=== PATIENT | female | born 1950 | race Hispanic/Latino ===

== ENCOUNTER 2017-05-09 19:55 | Emergency (ER) | payer SELFPAY ==
[2017-05-09] MEDS ORDERED: ACETAMINOPHEN-CODEINE ELIXIR 5 ML UDCUP ONE (20:29)
[2017-05-09 20:36] LABS: BASOPHILS % (AUTO) 0.9 % (0.0-5.0); EOSINOPHILS % (AUTO) 2.9 % (0.0-8.0); HEMATOCRIT 34.4 % (36-48); LYMPHOCYTES % (AUTO) 31.9 % (21.0-51.0); MEAN CORPUSCULAR HEMOGLOBIN 29.6 pg (27.0-33.0); MEAN CORPUSCULAR HGB CONC 35.4 g/dL (32.0-36.0); MEAN CORPUSCULAR VOLUME 83.5 fL (79-99); MONOCYTES % (AUTO) 5.5 % (3.0-13.0); NEUTROPHILS % (AUTO) 58.8 % (40.0-77.0); PLATELET COUNT (AUTO) 199 K/uL (130-400); RED BLOOD CELL COUNT(AUTO) 4.12 MIL/uL (4.00-5.50); RED CELL DISTRIBUTION WIDTH 13.7 % (11.0-15.5); WHITE BLOOD COUNT (AUTO) 7.5 K/uL (4.8-10.8)
[2017-05-09 20:50] LABS: CREATININE 0.7 mg/dL (0.5-1.5); POTASSIUM 4.2 mmol/L (3.5-5.1)
[2017-05-09 20:51] LABS: ALBUMIN 3.6 g/dL (3.5-5.0); BILIRUBIN,TOTAL 0.2 mg/dL (0.2-1.0); TOTAL PROTEIN, SERUM 7.3 g/dL (6.0-8.3)
[2017-05-09 21:07] LABS: APPEARANCE,URINE Clear (CLEAR); BILIRUBIN,URINE Negative (NEGATIVE); COLOR,URINE Yellow (YELLOW); GLUCOSE, URINE (UA) Negative (NEGATIVE); KETONES,URINE Negative (NEGATIVE); LEUKOCYTE ESTERASE ,URINE Moderate (NEGATIVE); NITRATE,URINE Positive (NEGATIVE); OCCULT BLOOD,URINE Negative (NEGATIVE); PROTEIN,URINE Negative (NEGATIVE); UROBILINOGEN,URINE 0.2 mg/dL (0.2-1.0)
[2017-05-09 21:19] LABS: BACTERIA,URINE Moderate /HPF (None Seen); RBC,URINE 0-1 /HPF (0-1); SQUAMOUS EPITHELIAL CELL,UR Rare /HPF (0-2)
[2017-05-09 21:20] LABS: CALCIUM OXALATE CRYSTALS,UR Rare /LPF (None Seen)
== END 2017-05-09 23:14 | disposition home or self-care (01) ==
LOC: EDH 19:55
DX: S39.012A Strain of muscle, fascia and tendon of lower back, initial encounter (principal); M54.31 Sciatica, right side; E11.40 Type 2 diabetes mellitus with diabetic neuropathy, unspecified; I10 Essential (primary) hypertension; E78.5 Hyperlipidemia, unspecified; Z98.890 Other specified postprocedural states
CPT/HCPCS: 36415; 72100; 72131; 80053; 81001; 85025

== ENCOUNTER 2018-02-02 07:34 | Emergency (ER) | payer OTHER ==
[2018-02-02] MEDS ORDERED: IPRATROPIUM/ALBUTEROL SULFATE 3 ML SOLUTION IH ONE (07:54)
[2018-02-02] MEDS ORDERED: ACETAMINOPHEN-CODEINE 300/30MG TAB ONE (08:01)
== END 2018-02-02 10:22 | disposition home or self-care (01) ==
LOC: EDH 07:34
DX: J06.9 Acute upper respiratory infection, unspecified (principal); E11.9 Type 2 diabetes mellitus without complications; E78.5 Hyperlipidemia, unspecified; I10 Essential (primary) hypertension; Z87.442 Personal history of urinary calculi
CPT/HCPCS: 71046; 94640

== ENCOUNTER 2018-12-19 05:12 | Emergency (ER) | payer OTHER ==
[2018-12-19] MEDS ORDERED: ACETAMINOPHEN 325 MG TAB ONE (05:37)
[2018-12-19 05:48] LABS: APPEARANCE,URINE Cloudy (CLEAR); BASOPHILS % (AUTO) 0.6 % (0.0-5.0); BILIRUBIN,URINE Negative (NEGATIVE); COLOR,URINE Yellow (YELLOW); EOSINOPHILS % (AUTO) 0.1 % (0.0-8.0); GLUCOSE, URINE (UA) Negative (NEGATIVE); HEMATOCRIT 34.6 % (36-48); KETONES,URINE Trace mg/dL (NEGATIVE); LEUKOCYTE ESTERASE ,URINE Large (NEGATIVE); LYMPHOCYTES % (AUTO) 10.8 % (21.0-51.0); MEAN CORPUSCULAR HEMOGLOBIN 28.8 pg (27.0-33.0); MEAN CORPUSCULAR HGB CONC 33.9 g/dL (32.0-36.0); MEAN CORPUSCULAR VOLUME 84.7 fL (79-99); MONOCYTES % (AUTO) 6.3 % (3.0-13.0); NEUTROPHILS % (AUTO) 82.2 % (40.0-77.0); NITRATE,URINE Positive (NEGATIVE); OCCULT BLOOD,URINE Trace (NEGATIVE); PH,URINE 7.5 (5.0-8.0); PLATELET COUNT (AUTO) 155 K/uL (130-400); PROTEIN,URINE Trace mg/dL (NEGATIVE); RED BLOOD CELL COUNT(AUTO) 4.09 MIL/uL (4.00-5.50); RED CELL DISTRIBUTION WIDTH 13.4 % (11.0-15.5); UROBILINOGEN,URINE 0.2 mg/dL (0.2-1.0); WHITE BLOOD COUNT (AUTO) 7.8 K/uL (4.8-10.8)
[2018-12-19 05:53] LABS: BACTERIA,URINE Moderate /HPF (None Seen); MUCUS,URINE Rare LPF (None Seen); SQUAMOUS EPITHELIAL CELL,UR Few /HPF (0-2)
[2018-12-19] MEDS ORDERED: PROCHLORPERAZINE EDISYLATE 10 MG/2 ML VIAL ONE (05:55)
[2018-12-19] MEDS ORDERED: DiphenhydrAMINE HCL 50 MG/ML VIAL ONE (05:55)
[2018-12-19] MEDS ORDERED: SODIUM CHLORIDE 0.9% 1000ML 1,000 ML IV ONE (05:55)
[2018-12-19 06:04] LABS: CARBON DIOXIDE 24 mmol/L (21-32); CHLORIDE 99 mmol/L (101-111); CREATININE 0.7 mg/dL (0.5-1.5); GLOMERULAR FILTR. RATE CALC 89 mL/min (>60); GLUCOSE,RANDOM 190 mg/dL (70-105); POTASSIUM 3.9 mmol/L (3.5-5.1); SODIUM SERUM 136 mmol/L (136-145); UREA NITROGEN, BLOOD 10 mg/dL (7-18)
[2018-12-19 06:06] LABS: INR 1.04 (0.85-1.15); PARTIAL THROMBOPLASTIN TIME 27.3 SEC (26.3-35.5); PROTHROMBIN TIME 10.9 SEC (9.6-11.6)
[2018-12-19] MEDS ORDERED: CEFTRIAXONE SODIUM 1 GM ONE (06:17)
[2018-12-19 06:33] LABS: ALANINE AMINOTRANSFERASE 15 U/L (12-78); ALBUMIN 3.5 g/dL (3.5-5.0); ASPARTATE AMINOTRANSFERASE 16 U/L (10-37); BILIRUBIN,TOTAL 0.4 mg/dL (0.2-1.0); CREATINE KINASE, TOTAL 72 U/L (21-232); MYOGLOBIN 35 ng/mL (10-92); TOTAL PROTEIN, SERUM 7.1 g/dL (6.0-8.3); TROPONIN I < 0.04 ng/mL (0.00-0.06)
[2018-12-19 06:40] LABS: LIPASE 121 U/L (114-286)
== END 2018-12-19 07:01 | disposition home or self-care (01) ==
LOC: EDH 05:12
DX: N39.0 Urinary tract infection, site not specified (principal); E11.9 Type 2 diabetes mellitus without complications; I10 Essential (primary) hypertension; E78.5 Hyperlipidemia, unspecified; Z87.442 Personal history of urinary calculi
CPT/HCPCS: 36415; 70450; 71045; 80053; 81001; 82550; 82948; 83605; 83690; 83874; 84145; 84484; 85025; 85610; 85730; 87040; 87077; 87088; 87186; 87804 ×2; 93005; 96374; 96375; 99285; J0696; J0780; J1200; J7030

== ENCOUNTER 2019-01-10 23:11 | Emergency (ER) | payer OTHER ==
[2019-01-11 00:06] LABS: EOSINOPHILS % (AUTO) 1.7 % (0.0-8.0); HEMATOCRIT 34.3 % (36-48); LYMPHOCYTES % (AUTO) 35.3 % (21.0-51.0); MEAN CORPUSCULAR HEMOGLOBIN 28.6 pg (27.0-33.0); MEAN CORPUSCULAR HGB CONC 33.3 g/dL (32.0-36.0); MEAN CORPUSCULAR VOLUME 85.8 fL (79-99); MONOCYTES % (AUTO) 7.1 % (3.0-13.0); NEUTROPHILS % (AUTO) 54.9 % (40.0-77.0); PLATELET COUNT (AUTO) 146 K/uL (130-400); RED CELL DISTRIBUTION WIDTH 13.7 % (11.0-15.5); WHITE BLOOD COUNT (AUTO) 5.6 K/uL (4.8-10.8)
[2019-01-11 00:11] LABS: INR 1.03 (0.85-1.15); PARTIAL THROMBOPLASTIN TIME 25.8 SEC (26.3-35.5); PROTHROMBIN TIME 10.8 SEC (9.6-11.6)
[2019-01-11 00:20] LABS: CREATININE 0.9 mg/dL (0.5-1.5)
[2019-01-11 00:24] LABS: ALBUMIN 3.7 g/dL (3.5-5.0); BILIRUBIN,TOTAL 0.2 mg/dL (0.2-1.0)
[2019-01-11] MEDS ORDERED: SODIUM CHLORIDE 0.9% 1000ML 1,000 ML IV ONE (01:02)
[2019-01-11 01:23] LABS: APPEARANCE,URINE Clear (CLEAR); BILIRUBIN,URINE Negative (NEGATIVE); COLOR,URINE Yellow (YELLOW); GLUCOSE, URINE (UA) 250 mg/dL (NEGATIVE); KETONES,URINE Negative (NEGATIVE); LEUKOCYTE ESTERASE ,URINE Large (NEGATIVE); NITRATE,URINE Negative (NEGATIVE); OCCULT BLOOD,URINE Negative (NEGATIVE); PH,URINE 5.5 (5.0-8.0); PROTEIN,URINE Negative (NEGATIVE); UROBILINOGEN,URINE 0.2 mg/dL (0.2-1.0)
[2019-01-11 01:36] LABS: BACTERIA,URINE None Seen /HPF (None Seen); RBC,URINE None Seen /HPF (0-1); SQUAMOUS EPITHELIAL CELL,UR Rare /HPF (0-2); YEAST,URINE BUDDING None Seen /HPF (None Seen)
[2019-01-11] MEDS ORDERED: CEFTRIAXONE SODIUM 1 GM ONE (02:11)
== END 2019-01-11 02:40 | disposition home or self-care (01) ==
LOC: EDH 23:11
DX: E86.9 Volume depletion, unspecified (principal); N39.0 Urinary tract infection, site not specified; R55 Syncope and collapse; I10 Essential (primary) hypertension; E11.9 Type 2 diabetes mellitus without complications; E78.5 Hyperlipidemia, unspecified; M19.90 Unspecified osteoarthritis, unspecified site; Z87.442 Personal history of urinary calculi
CPT/HCPCS: 36415; 80053; 81001; 82550; 84484; 85025; 85610; 85730; 87088; 93005; 96361; 96374; 99285; J0696; J7030

== ENCOUNTER 2019-07-10 20:27 | Observation (INO) | payer MEDICAID, OTHER ==
[~2019-07-10] VITALS: Ht 157.5 cm; Wt 74.2 kg
[2019-07-10 20:55] LABS: BASOPHILS % (AUTO) 0.5 % (0.0-5.0); EOSINOPHILS % (AUTO) 1.6 % (0.0-8.0); HEMATOCRIT 36.3 % (36-48); LYMPHOCYTES % (AUTO) 33.1 % (21.0-51.0); MEAN CORPUSCULAR HEMOGLOBIN 28.7 pg (27.0-33.0); MEAN CORPUSCULAR HGB CONC 33.9 g/dL (32.0-36.0); MEAN CORPUSCULAR VOLUME 84.8 fL (79-99); MONOCYTES % (AUTO) 6.1 % (3.0-13.0); NEUTROPHILS % (AUTO) 58.4 % (40.0-77.0); PLATELET COUNT (AUTO) 194 K/uL (130-400); RED BLOOD CELL COUNT(AUTO) 4.28 MIL/uL (4.00-5.50); RED CELL DISTRIBUTION WIDTH 12.8 % (11.0-15.5); WHITE BLOOD COUNT (AUTO) 7.7 K/uL (4.8-10.8)
[2019-07-10 21:01] LABS: CREATININE 0.9 mg/dL (0.5-1.5); POTASSIUM 4.1 mmol/L (3.5-5.1)
[2019-07-10 21:05] LABS: ALBUMIN 4.1 g/dL (3.5-5.0); BILIRUBIN,TOTAL 0.2 mg/dL (0.2-1.0); TOTAL PROTEIN, SERUM 7.7 g/dL (6.0-8.3)
[2019-07-10 21:08] LABS: INR 0.98 (0.85-1.15); PARTIAL THROMBOPLASTIN TIME 25.4 SEC (26.3-35.5); PROTHROMBIN TIME 10.6 SEC (9.6-11.6)
[2019-07-10 21:55] LABS: APPEARANCE,URINE Clear (CLEAR); BILIRUBIN,URINE Negative (NEGATIVE); COLOR,URINE Yellow (YELLOW); GLUCOSE, URINE (UA) 500 mg/dL (NEGATIVE); KETONES,URINE Negative (NEGATIVE); LEUKOCYTE ESTERASE ,URINE Small (NEGATIVE); NITRATE,URINE Negative (NEGATIVE); OCCULT BLOOD,URINE Negative (NEGATIVE); PH,URINE 5.5 (5.0-8.0); PROTEIN,URINE Negative (NEGATIVE); UROBILINOGEN,URINE 0.2 mg/dL (0.2-1.0)
[2019-07-10 22:00] LABS: RBC,URINE 0-1 /HPF (0-1); SQUAMOUS EPITHELIAL CELL,UR Rare /HPF (0-2)
[2019-07-10 22:01] LABS: BACTERIA,URINE Few /HPF (None Seen)
[2019-07-10 22:02] LABS: AMPHET/METH SCREEN,URINE NEGATIVE (NEGATIVE); BARBITURATE SCREEN, URINE NEGATIVE (NEGATIVE); BENZODIAZEPINES SCREEN,URINE NEGATIVE (NEGATIVE); CANNABINOID SCREEN,URINE NEGATIVE (NEGATIVE); COCAINE SCREEN,URINE NEGATIVE (NEGATIVE); OPIATE SCREEN,URINE NEGATIVE (NEGATIVE); PHENCYCLIDINE SCREEN,URINE NEGATIVE (NEGATIVE)
[2019-07-10] MEDS ORDERED: SODIUM CHLORIDE 0.9% 1000ML 1,000 ML IV ONE (22:18)
[2019-07-10] MEDS ORDERED: INSULIN HUMULIN R 100 UNIT/ML 3ML ONE (22:20)
[2019-07-11] MEDS ORDERED: LACTULOSE 20 GM/30 ML UDCUP PO PRN (00:30)
[2019-07-11] MEDS ORDERED: ACETAMINOPHEN 325 MG TAB PO PRN ×2 (00:30)
[2019-07-11] MEDS ORDERED: HYDRALAZINE HCL 20 MG/ML VIAL IV PRN (00:30)
[2019-07-11] MEDS ORDERED: ONDANSETRON HCL 4 MG/2 ML VIAL IV PRN (00:30)
[2019-07-11 00:59] LABS: CHOLESTEROL 160 mg/dL (<200); HDL CHOLESTEROL 119 mg/dL (35-85); TRIGLYCERIDES 401 mg/dL (30-200)
[2019-07-11] MEDS ORDERED: ATORVASTATIN CALCIUM 20 MG TABLET ONE (01:46)
[2019-07-11 01:48] LABS: HEMOGLOBIN A1C 9.1 % (4.0-6.0)
[2019-07-11 03:49] VITALS: BP 148/97
[2019-07-11] MEDS: INSULIN HUMULIN R 100 UNIT/ML 3ML SQ SCH ×2 (06:09→11:38)
[2019-07-11 08:00] VITALS: BP 122/77
[2019-07-11] MEDS ORDERED: FAMOTIDINE 20MG TAB 20 MG TAB PO SCH (09:00)
--- NOTE | 2019-07-11 10:15 | NUR ---
CHART CHECK COMPLETED Pt IS A 68 YEAR OLD FEMALE ADMITTED ON 07/10/19 SECONDARY TO FACE NUMBNESS, R/0 CVA VS TIA WITH PAST MEDICAL HISTORY OF DIABETES, HTN, AND HYPERLIPIDEMIA. NOTIFY SPEECH THERAPY FOR DYSPHAGIA EVALUATION IF S/S OF ASPIRATION ARISE. Addendum: 07/11/[address]AN HUERTAS Amended: Links added.
--- NOTE | 2019-07-11 10:26 | NUR ---
NEUROLOGY DR. BORJAS IN TO SEE PATIENT. NEW ORDERS RECEIVED AND CARRIED OUT.
[2019-07-11] MEDS ORDERED: ATOR20TA65 PO (10:48)
[2019-07-11] MEDS ORDERED: SITA25TA5 PO (10:48)
[2019-07-11] MEDS ORDERED: METF-444 PO (10:48)
[2019-07-11] MEDS ORDERED: METFORMIN HCL 500 MG TAB.SR.24H PO SCH (11:00)
[2019-07-11] MEDS ORDERED: LINAGLIPTIN 5 MG TABLET PO SCH (11:00)
[2019-07-11 11:14] VITALS: BP 127/74
--- NOTE | 2019-07-11 12:30 | NUR ---
INSTRUCTIONS DISCHARGE INSTRUCTIONS GIVEN TO PATIENT USING TEACH BACK. NO QUESTIONS OR CONCERNS VOICED. PMD WILL CALL PATIENT WITH F/U APPOINTMENT. NEW PRESCRIPTIONS ELECTRONICALLY SENT TO PATIENT'S PREFERRED PHARMACY. IV HAS BEEN REMOVED WITH TIP INTACT. DIRECT PRESSURE APPLIED UNTIL BLEEDING CONTROLLED THEN SITE COVERED WITH GAUZE AND SECURED WITH A BAND-AID. PENDING RIDE HOME.
--- NOTE | 2019-07-11 13:10 | NUR ---
PATIENT GONE BEFORE SEEN BY [facility] FOR DETAILED ASSESSMENT. NO CONCERNS VOICED BY PT RECORDER HELPER GRAVITY PROSPECTING, Addendum: 07/11/19 at 1311 by MAHSA ROGERS RN CM Amended: Links added.
[2019-07-11] MEDS ORDERED: ATORVASTATIN CALCIUM 20 MG TABLET PO SCH (21:00)
== END 2019-07-11 12:57 | disposition home or self-care (01) ==
LOC: EDH 20:27 → EDHIP 20:28 → 4AH 07-11 03:55
PROVIDERS: ADMIT Internal Medicine; ATTEND Internal Medicine
DX: I63.9 Cerebral infarction, unspecified (principal); I10 Essential (primary) hypertension; E11.65 Type 2 diabetes mellitus with hyperglycemia; E11.51 Type 2 diabetes mellitus with diabetic peripheral angiopathy without gangrene; E78.5 Hyperlipidemia, unspecified; Z91.14 Patient's other noncompliance with medication regimen
CPT/HCPCS: 36415; 70450; 70551; 71045; 80053; 80305; 81001; 82465; 82550; 82948 ×4; 83036; 83721; 84478; 84484; 85025; 85610; 85730; 87077; 87088; 87186; 93005; 93306; 93356; 93880; 96372; 97161; 99285; G0378 ×12; G8978; G8979; G8980; G8981; G8982; G8983; J1815 ×3; J7030

== ENCOUNTER 2020-07-11 06:02 | Emergency (ER) | payer MEDICAID, OTHER ==
[~2020-07-11 06:02] MED LIST: ATOR20TA65 PO; METF-444 PO; SITA25TA5 PO
[2020-07-11 06:27] LABS: BASOPHILS % (AUTO) 0.4 % (0.0-5.0); EOSINOPHILS % (AUTO) 0.6 % (0.0-8.0); HEMATOCRIT 34.1 % (36-48); MEAN CORPUSCULAR HEMOGLOBIN 27.9 pg (27.0-33.0); MEAN CORPUSCULAR HGB CONC 32.3 g/dL (32.0-36.0); MEAN CORPUSCULAR VOLUME 86.5 fL (79-99); MONOCYTES % (AUTO) 7.8 % (3.0-13.0); NEUTROPHILS % (AUTO) 50.8 % (40.0-77.0); PLATELET COUNT (AUTO) 208 K/uL (130-400); RED BLOOD CELL COUNT(AUTO) 3.94 MIL/uL (4.00-5.50); RED CELL DISTRIBUTION WIDTH 14.5 % (11.0-15.5); WHITE BLOOD COUNT (AUTO) 6.9 K/uL (4.8-10.8)
[2020-07-11 06:41] LABS: ALBUMIN 3.3 g/dL (3.5-5.0); BILIRUBIN,TOTAL 0.3 mg/dL (0.2-1.0); CREATININE 0.6 mg/dL (0.5-1.5); POTASSIUM 4.3 mmol/L (3.5-5.1); TOTAL PROTEIN, SERUM 7.1 g/dL (6.0-8.3)
[2020-07-11 06:50] LABS: APPEARANCE,URINE CLEAR (CLEAR); BILIRUBIN,URINE NEGATIVE (NEGATIVE); COLOR,URINE YELLOW (YELLOW); GLUCOSE, URINE (UA) NEGATIVE (NEGATIVE); KETONES,URINE NEGATIVE (NEGATIVE); LEUKOCYTE ESTERASE ,URINE SMALL (NEGATIVE); NITRATE,URINE NEGATIVE (NEGATIVE); OCCULT BLOOD,URINE NEGATIVE (NEGATIVE); PROTEIN,URINE NEGATIVE (NEGATIVE); UROBILINOGEN,URINE 0.2 mg/dL (0.2-1.0)
[2020-07-11] MEDS ORDERED: LIDOCAINE HCL 2% VISCOUS 15 ML UDCUP ONE (07:30)
[2020-07-11] MEDS ORDERED: MAG HYDROX/AL HYDROX/SIMETH ES 30 ML SUSP UDCUP ONE (07:30)
[2020-07-11 07:54] LABS: BACTERIA,URINE Moderate /HPF (None Seen); RBC,URINE None Seen /HPF (0-1); SQUAMOUS EPITHELIAL CELL,UR Rare /HPF (0-2); TRANSITIONAL EPI CELLS,URINE Rare /HPF (None Seen)
== END 2020-07-11 10:42 | disposition home or self-care (01) ==
LOC: EDH 06:02
DX: K29.00 Acute gastritis without bleeding (principal); I10 Essential (primary) hypertension; E11.9 Type 2 diabetes mellitus without complications; M19.90 Unspecified osteoarthritis, unspecified site; E78.5 Hyperlipidemia, unspecified; Z90.710 Acquired absence of both cervix and uterus
CPT/HCPCS: 36415; 74176; 80053; 81001; 83690; 84484; 85025; 87077; 87088; 87186; 93005

== ENCOUNTER 2022-02-07 09:26 | Emergency (ER) | payer MEDICAID, OTHER ==
[~2022-02-07] VITALS: Ht 162.6 cm; Wt 76.2 kg
[2022-02-07 09:59] LABS: BASOPHILS % (AUTO) 0.6 % (0.0-5.0); EOSINOPHILS % (AUTO) 0.5 % (0.0-8.0); HEMATOCRIT 33.4 % (36-48); LYMPHOCYTES % (AUTO) 34.7 % (21.0-51.0); MEAN CORPUSCULAR HEMOGLOBIN 27.8 pg (27.0-33.0); MEAN CORPUSCULAR HGB CONC 31.7 g/dL (32.0-36.0); MEAN CORPUSCULAR VOLUME 87.7 fL (79-99); MONOCYTES % (AUTO) 5.2 % (3.0-13.0); NEUTROPHILS % (AUTO) 58.7 % (40.0-77.0); PLATELET COUNT (AUTO) 199 K/uL (130-400); RED BLOOD CELL COUNT(AUTO) 3.81 MIL/uL (4.00-5.50); RED CELL DISTRIBUTION WIDTH 13.7 % (11.0-15.5); WHITE BLOOD COUNT (AUTO) 7.7 K/uL (4.8-10.8)
[2022-02-07 10:12] LABS: CREATININE 0.8 mg/dL (0.5-1.5); POTASSIUM 3.6 mmol/L (3.5-5.1)
[2022-02-07 10:15] LABS: ALBUMIN 3.3 g/dL (3.5-5.0); TOTAL PROTEIN, SERUM 6.8 g/dL (6.0-8.3)
[2022-02-07] MEDS ORDERED: IOHEXOL 350 MG/ML 100ML INFUS..BTL IV ONE (10:31)
[2022-02-07] MEDS ORDERED: ACET-66 PO (11:58)
[2022-02-07 12:14] VITALS: BP 123/77
== END 2022-02-07 12:15 | disposition home or self-care (01) ==
LOC: EDH 09:26
DX: N64.4 Mastodynia (principal); R07.89 Other chest pain; E11.9 Type 2 diabetes mellitus without complications; E78.00 Pure hypercholesterolemia, unspecified; J44.9 Chronic obstructive pulmonary disease, unspecified; Z79.899 Other long term (current) drug therapy; Z79.84 Long term (current) use of oral hypoglycemic drugs
CPT/HCPCS: 99285; 70450; 82550; 84484; 80053; 85025; 36415; 72125; 71260; 74177; 93005; Q9967

== ENCOUNTER 2024-04-15 10:11 | Emergency (ER) | payer SELFPAY ==
[~2024-04-15] VITALS: Ht 157.5 cm; Wt 73.5 kg
[~2024-04-15 10:11] MED LIST changes: +ACET-66 PO
[2024-04-15 11:04] LABS: APPEARANCE,URINE CLEAR (CLEAR); BILIRUBIN,URINE NEGATIVE (NEGATIVE); COLOR,URINE LIGHT-YELLOW (YELLOW); GLUCOSE, URINE (UA) >=1000 mg/dL (NEGATIVE); KETONES,URINE NEGATIVE (NEGATIVE); LEUKOCYTE ESTERASE ,URINE 500 Leu/uL (NEGATIVE); NITRATE,URINE 2+ (NEGATIVE); OCCULT BLOOD,URINE NEGATIVE (NEGATIVE); PH,URINE 5.5 (5.0-8.0); UROBILINOGEN,URINE 0.2 mg/dL (0.2-1.0)
[2024-04-15 11:05] LABS: ADD UA MICROSCOPIC YES; PROTEIN,URINE NEGATIVE (NEGATIVE)
[2024-04-15 11:06] LABS: BACTERIA,URINE FEW /HPF (None Seen); SQUAMOUS EPITHELIAL CELL,UR RARE /HPF (0-2); WBC,URINE 26-50 /HPF (0-1)
[2024-04-15 11:09] LABS: BASOPHILS # (AUTO) 0.04 K/uL (0.00-0.20); BASOPHILS % (AUTO) 0.6 % (0.0-5.0); EOSINOPHILS # (AUTO) 0.08 K/uL (0.00-0.70); EOSINOPHILS % (AUTO) 1.2 % (0.0-8.0); IMMATURE GRANULOCYTE ABSOLUTE 0.02 K/uL (0-1); LYMPHOCYTES # (AUTO) 2.4 K/uL (1.0-4.8); LYMPHOCYTES % (AUTO) 34.5 % (21.0-51.0); MEAN CORPUSCULAR HEMOGLOBIN 28.1 pg (27.0-33.0); MEAN CORPUSCULAR HGB CONC 31.9 g/dL (32.0-36.0); MEAN CORPUSCULAR VOLUME 88.1 fL (79-99); MONOCYTES # (AUTO) 0.4 K/uL (0.1-1.0); MONOCYTES % (AUTO) 5.3 % (3.0-13.0); NEUTROPHILS % (AUTO) 58.1 % (40.0-77.0); PLATELET COUNT (AUTO) 209 K/uL (130-400); RED CELL DISTRIBUTION WIDTH 14.3 % (11.0-15.5)
[2024-04-15 11:22] LABS: ALBUMIN 3.7 g/dL (3.5-5.0); BILIRUBIN,DIRECT 0.1 mg/dL (0.0-0.3); BILIRUBIN,TOTAL 0.4 mg/dL (0.2-1.0); CREATININE 0.7 mg/dL (0.5-1.0); TOTAL PROTEIN, SERUM 7.3 g/dL (6.0-8.3)
--- NOTE | 2024-04-15 11:26 | ERN ---
ED Note History of Present Illness Stated Complaint: STOMACH PAIN Chief Complaint: Abdominal Pain Time Seen by MD: 10:16 Time Seen by Midlevel: 10:20 Dictation: 73-year-old female with a history of diabetes, hypertension, cholesterol coming in with complaining of abdominal pain and bloating for three days. Patient states the pain is more on the abdominal wall and states it feels like burning sensation along with some dysuria. Denies any fever, nausea, vomiting. Denies any chest pain or chest discomfort, shortness of breath. Patient thinks his pain is due to her injecting her insulin. Allergies: Coded Allergies: No Known Drug Allergies (Unverified Allergy, Unknown, 01/11/19) Home Meds Active Scripts Acetaminophen (Tylenol) 500 Mg Tab, 500 MG PO Q6HPRN PRN for PAIN LEVEL 1 TO 5 for 5 Days, #30 TAB Prov:BHAKTI CISSE MD 02/07/22 Sitagliptin Phosphate (Januvia) 25 Mg Tablet, 25 MG PO DAILY for 30 Days, #30 TAB Prov:GRAHAM CHAIDEZ Jr., MD 07/11/19 Metformin HCl (Metformin HCl) 500 Mg Tablet, 500 MG PO TIDAC for 30 Days, #90 TAB Prov:GRAHAM CHAIDEZ Jr., MD 07/11/19 Atorvastatin Calcium (Atorvastatin Calcium) 20 Mg Tablet, 20 MG PO HS for 30 Days, #30 TAB Prov:GRAHAM CHAIDEZ Jr., MD 07/11/19 Past Medical History Past Medical History: Arthritis, Diabetes-Type II, High Cholesterol, Hypertension Surgical History: Hysterectomy, Social History: Negative Review of System Dictation Constitutional: Negative for fever,chills, and weight loss Eyes: Negative for injury, pain,redness, and discharge ENT: Negative for injury,pain or swelling Cardiovascular: Negative for chest pain, palpitations, and edema Respiratory: Negative for shortness of breath, cough, and wheezing, Abdomen/GI: Complaining of abdominal wall pain, nausea, vomiting, diarrhea, and constipation Back: Negative for injury and pain : Negative for injury, bleeding and discharge MS/Extremity: Negative for injury and deformity Skin: Negative for rash, and discoloration Neuro: Negative for headache, weakness, numbness, tingling, and seizure Psych: Negative for suicide ideation, homicidal ideation, and hallucinations Review of Systems: was completed Initial Vital Sign VS Vital Signs Date Time Temp Pulse Resp B/P (MAP) Pulse Ox O2 Delivery O2 Flow Rate FiO2 04/15/24 10:18 97.3 73 16 128/76 98 Room Air Physical Exam Dictation General: awake, alert, NAD Head/Face: Normocephalic, atraumatic Eyes: PERRL, EOMI, vision at baseline ENT: oral cavity clear, TMs clear, no signs of infection Neck: Trachea midline, supple, no nuchal rigidity Cardiovascular: RRR, normal S1/S2, No MRGs, no JVD Respiratory: CTAB, no respiratory distress, No rales or wheezes Abdomen: Soft, non-tender, non-distended, normal bowel sounds, no guarding or rebound. Skin: Warm, dry, normal turgor, no rash MS/Extremity: Pulses equal, no cyanosis, neurovascular intact, FROM Neuro: COAx4, GCS 15, strength 5/5, CN 2-12 intact, normal cerebellar exam, normal gait, Psych: Normal behavior, mood, and affect normal Results (Laboratory/Radiology) Laboratory/Radiology Laboratory Tests Test 04/15/24 10:42 04/15/24 10:55 Urine Color LIGHT-YELLOW (YELLOW) Urine Appearance CLEAR (CLEAR) Urine pH 5.5 (5.0-8.0) Urine Specific Sumner 1.022 (1.001-1.031) Urine Protein NEGATIVE mg/dL (NEGATIVE) Urine Glucose (UA) >=1000 mg/dL (NEGATIVE) H Urine Ketones NEGATIVE mg/dL (NEGATIVE) Urine Occult Blood NEGATIVE (NEGATIVE) Urine Nitrate 2+ (NEGATIVE) H Urine Bilirubin NEGATIVE mg/dL (NEGATIVE) Urine Urobilinogen 0.2 mg/dL (0.2-1.0) Urine Leukocyte Esterase 500 Swathi/uL (NEGATIVE) H Urine RBC 2-5 /HPF (0-1) H Urine WBC 26-50 /HPF (0-1) H Urine Squamous Epithelial Cells RARE /HPF (0-2) Urine Bacteria FEW /HPF (None Seen) White Blood Count 7.0 K/uL (4.8-10.8) Red Blood Count 4.20 MIL/uL (4.00-5.50) Hemoglobin 11.8 g/dL (12.0-16.0) L Hematocrit 37.0 % (36-48) Mean Corpuscular Volume 88.1 fL (79-99) Mean Corpuscular Hemoglobin 28.1 pg (27.0-33.0) Mean Corpuscular Hemoglobin Concent 31.9 g/dL (32.0-36.0) L Red Cell Distribution Width 14.3 % (11.0-15.5) Platelet Count 209 K/uL (130-400) Mean Platelet Volume 11.0 fL (7.5-10.5) H Immature Granulocyte % (Auto) 0.3 % (0-1) Neutrophils (%) (Auto) 58.1 % (40.0-77.0) Lymphocytes (%) (Auto) 34.5 % (21.0-51.0) Monocytes (%) (Auto) 5.3 % (3.0-13.0) Eosinophils (%) (Auto) 1.2 % (0.0-8.0) Basophils (%) (Auto) 0.6 % (0.0-5.0) Neutrophils # (Auto) 4.0 K/uL (1.8-7.7) Lymphocytes # (Auto) 2.4 K/uL (1.0-4.8) Monocytes # (Auto) 0.4 K/uL (0.1-1.0) Eosinophils # (Auto) 0.08 K/uL (0.00-0.70) Basophils # (Auto) 0.04 K/uL (0.00-0.20) Absolute Immature Granulocyte (auto 0.02 K/uL (0-1) Nucleated Red Blood Cells 0.0 % (0.0-0.19) Sodium Level 138 mmol/L (136-145) Potassium Level 4.0 mmol/L (3.5-5.1) Chloride Level 103 mmol/L (101-111) Carbon Dioxide Level 26 mmol/L (21-32) Blood Urea Nitrogen 19 mg/dL (7-18) H Creatinine 0.7 mg/dL (0.5-1.0) Glomerular Filtration Rate Calc 92 mL/min (>90) Random Glucose 136 mg/dL (70-105) H Total Calcium 9.5 mg/dL (8.5-10.1) Total Bilirubin 0.4 mg/dL (0.2-1.0) Direct Bilirubin 0.1 mg/dL (0.0-0.3) Aspartate Amino Transf (AST/SGOT) 16 U/L (10-37) Alanine Aminotransferase (ALT/SGPT) 22 U/L (12-78) Alkaline Phosphatase 43 U/L (50-136) L Total Protein 7.3 g/dL (6.0-8.3) Albumin 3.7 g/dL (3.5-5.0) Labs Reviewed?: Yes CT Scan Comment: [facility] [address] [place] [address] IMAGING REPORT Signed PATIENT: ARLENE WHTITINGTON MR#: [id number] : 1950 SEX: F AGE: 73 LOCATION: [facility] ORDER 104 STATUS: [facility] REPORT#: [id number] SERVICE [id number] REASON: generalized abdominal pain ORDERING PHYSICIAN: JOSEPH GILBERT NP PROCEDURE: ABD PEL WO - CT ABDOMEN/PELVIS W/O CONTRAST CT ABDOMEN WITHOUT CONTRAST. CT PELVIS WITHOUT CONTRAST. INDICATION: Generalized abdominal pain for 3 days; no other relevant history provided. TECHNIQUE: Routine transaxial imaging using 5 mm slice thickness through the abdomen and pelvis without the administration of IV contrast. Thin slice reconstructions are also provided. Coronal and sagittal reformatted images acquired for interpretation. CT was performed with one or more of the following dose reduction techniques: Automated exposure control, adjustment of the mA and/or kV according to patient size, or use of iterative reconstruction technique. COMPARISON: None FINDINGS: ON NONCONTRAST IMAGING: ABDOMEN: Heart size is normal. Visible lung bases are clear. No abnormal renal calcifications, hydronephrosis, perinephric inflammation, or proximal hydroureter detected. The liver is normal in size and smooth in contour without biliary duct dilation. The spleen is normal in size and attenuation. Miniscule calcific gallbladder fundal stone. The pancreas appears normal without pancreatic duct dilation. The adrenal glands appear normal. No significant abdominal, retrocrural or retroperitoneal adenopathy noted. No evidence for intra-abdominal free air or organized fluid collection. Mild calcific plaque along the abdominal aortic moscoso without aneurysmal dilation. PELVIS: No abnormal calcifications within the urinary bladder or distal ureters. No evidence for free air or organized pelvic fluid collection. No significant pelvic adenopathy detected. A few diverticula along the proximal and distal colon. Moderate stool burden. Terminal ileum appears unremarkable. The appendix appears normal. Visible osseous structures are intact. IMPRESSION: Limited history provided. Mild cholelithiasis. Moderate stool burden. DICTATED BY: RAUL HAYES MD DATE: 04/15/24 1133 ELECTRONICALLY SIGNED BY: RAUL HAYES MD DATE: 04/15/24 1137 ED Course ED Course Orders Procedure Category Date Status Time Cbc With Differential LAB 04/15/24 Complete 10:31 Basic Metabolic Panel LAB 04/15/24 Complete 10:31 Hepatic Function Panel LAB 04/15/24 Complete 10:31 Urinalysis Profile LAB 04/15/24 Complete 10:31 Dicyclomine Hcl PHA 04/15/24 Complete (Bentyl 20mg Inj) 10:31 Ct Abdomen/Pelvis W/O CT 04/15/24 Resulted Contrast 10:45 Culture Urine PAUL 04/15/24 In Process 11:05 Ceftriaxone 1g Vial PHA 04/15/24 Complete (Rocephine 1g Inj) 11:10 Current Medications Medications (Trade) Dose Ordered Sig/Benitez Route PRN Reason Start Time Stop Time Status Last Admin Dose Admin Ceftriaxone Sodium (ROCEphine 1G INJ) 1 gm ONCE STAT IVPB 04/15/24 11:10 04/15/24 11:13 DC 04/15/24 11:30 Dicyclomine HCl (Bentyl 20mg Inj) 20 mg ONCE STAT IM 04/15/24 10:31 04/15/24 10:37 DC 04/15/24 11:30 Vital Signs Date Time Temp Pulse Resp B/P (MAP) Pulse Ox O2 Delivery O2 Flow Rate FiO2 04/15/24 10:18 97.3 73 16 128/76 98 Room Air Medical Decision Making MDM MDM: 73-year-old female with a history of diabetes, hypertension, cholesterol coming in with complaining of abdominal pain and bloating for three days. Patient states the pain is more on the abdominal wall and states it feels like burning sensation along with some dysuria. Denies any fever, nausea, vomiting. Denies any chest pain or chest discomfort, shortness of breath. Patient thinks his pain is due to her injecting her insulin.CBC shows no leukocytosis, no anem ia, no thrombocytopenia. Chemistry shows no electrolyte abnormality. Only hyperglycemia at 1:36 a.m.. Liver enzymes within normal range. UA shows evidence of urinary tract infection, Rocephin given in the emergency room. CT scan shows mild cholelithiasis, moderate stool burden. Discussed findings with patient. Educated patient is to alternate her insulin injection sites, return to the ER as she has not he worsens or new symptoms, and increase her in taking fiber. Patient verbalized understanding, answered all questions. Differential diagnosis: UTI, gastritis, GERD, abdominal wall abscess Rationale: Tests considered and ordered secondary to shared decision making include: Previous outside records reviewed: Old ER visits. Risk of complication and/or morbidity or mortality of patient management: None Medications-Per medication reconciliation Need for hospitalization: Patient does not meet criteria for hospitalization. Need for emergency major/minor surgery: No There are no social concerns with this patient. Prescription drug management Prescriptions will include symptomatic care Patient's prior external medical records from other ER visits were reviewed by me as indicated. Prior testing and results from previous visits were reviewed. Prior tests were taken into account with medical decision making and resource utilization, independent historian/historians were used to obtain complete medical history. I independently interpreted the test that were performed, results were reviewed by me and considered findings on radiology if ordered. Medical management and examination interpretation discussions were had by me with other qualified healthcare professionals as indicated for the patient's care. DX & DISP Disposition: Discharge Departure Impression: Primary Impression: Urinary tract infection Additional Impressions: Abdominal wall pain, Constipation Condition: Stable Scripts Docusate Sodium (Colace) 100 Mg Capsule 100 MG PO TID for constipation, #30 CAP 0 Refills Prov: JOSEPH GILBERT [employer] 04/15/24 Cephalexin Monohydrate (Keflex) 500 Mg Cap 500 MG PO QID for 7 Days, #28 CAP Prov: JOSEPH GILBERT [employer] 04/15/24 Additional Instructions: Seguir con el doctor familiar. Breezy el antibiotico. Cambie el lugar de injecion de la insulina seguido. Regrese si tiene otros symptomas. Referrals: ASHA TIWARI (PCP) Time of Disposition: 11:45 I have reviewed the case, and I agree with, Diagnosis and Plan JOSEPH GILBERT NP Apr 15, 2024 11:26
[2024-04-15] MEDS: cefTRIAXone 1G VIAL IVPB STA (11:30)
[2024-04-15] MEDS: DICYCLOMINE 20MG (10MG/ML) AMP IM STA (11:30)
--- NOTE | 2024-04-15 11:37 | HMCIMG ---
CT ABDOMEN WITHOUT CONTRAST. CT PELVIS WITHOUT CONTRAST. INDICATION: Generalized abdominal pain for 3 days; no other relevant history provided. TECHNIQUE: Routine transaxial imaging using 5 mm slice thickness through the abdomen and pelvis without the administration of IV contrast. Thin slice reconstructions are also provided. Coronal and sagittal reformatted images acquired for interpretation. CT was performed with one or more of the following dose reduction techniques: Automated exposure control, adjustment of the mA and/or kV according to patient size, or use of iterative reconstruction technique. COMPARISON: None FINDINGS: ON NONCONTRAST IMAGING: ABDOMEN: Heart size is normal. Visible lung bases are clear. No abnormal renal calcifications, hydronephrosis, perinephric inflammation, or proximal hydroureter detected. The liver is normal in size and smooth in contour without biliary duct dilation. The spleen is normal in size and attenuation. Miniscule calcific gallbladder fundal stone. The pancreas appears normal without pancreatic duct dilation. The adrenal glands appear normal. No significant abdominal, retrocrural or retroperitoneal adenopathy noted. No evidence for intra-abdominal free air or organized fluid collection. Mild calcific plaque along the abdominal aortic moscoso without aneurysmal dilation. PELVIS: No abnormal calcifications within the urinary bladder or distal ureters. No evidence for free air or organized pelvic fluid collection. No significant pelvic adenopathy detected. A few diverticula along the proximal and distal colon. Moderate stool burden. Terminal ileum appears unremarkable. The appendix appears normal. Visible osseous structures are intact. IMPRESSION: Limited history provided. Mild cholelithiasis. Moderate stool burden.
[2024-04-15] MEDS ORDERED: DOCU-116 PO (11:47)
[2024-04-15] MEDS ORDERED: CEPH500B PO (11:47)
[2024-04-15 12:21] VITALS: BP 121/76; PULSE 73; RESP 16; TEMP 97.9; O2SAT 98
== END 2024-04-15 12:28 | disposition home or self-care (01) ==
LOC: EDH 10:11
DX: N39.0 Urinary tract infection, site not specified (principal); R10.9 Unspecified abdominal pain; K59.00 Constipation, unspecified; M19.90 Unspecified osteoarthritis, unspecified site; E11.9 Type 2 diabetes mellitus without complications; E78.00 Pure hypercholesterolemia, unspecified; I10 Essential (primary) hypertension; Z79.84 Long term (current) use of oral hypoglycemic drugs; Z90.710 Acquired absence of both cervix and uterus
CPT/HCPCS: 99285; 74176; 96365; 80076; 80048; 85025; 87086 ×2; 87186; 81001; 36415; 96372; J0696; J0500

== ENCOUNTER 2024-08-04 22:01 | Inpatient (IN) | payer MEDICAID, OTHER ==
[~2024-08-04] VITALS: Ht 152.4 cm; Wt 79.0 kg
[~2024-08-04 22:01] MED LIST changes: +CEPH500B PO; +DOCU-116 PO
[2024-08-04 22:16] LABS: BASOPHILS # (AUTO) 0.04 K/uL (0.00-0.20); BASOPHILS % (AUTO) 0.6 % (0.0-5.0); EOSINOPHILS # (AUTO) 0.05 K/uL (0.00-0.70); EOSINOPHILS % (AUTO) 0.8 % (0.0-8.0); HEMATOCRIT 32.9 % (36-48); IMMATURE GRANULOCYTE ABSOLUTE 0.03 K/uL (0-1); LYMPHOCYTES # (AUTO) 1.9 K/uL (1.0-4.8); MEAN CORPUSCULAR HEMOGLOBIN 29.4 pg (27.0-33.0); MEAN CORPUSCULAR HGB CONC 32.8 g/dL (32.0-36.0); MEAN CORPUSCULAR VOLUME 89.6 fL (79-99); MONOCYTES # (AUTO) 0.4 K/uL (0.1-1.0); MONOCYTES % (AUTO) 6.2 % (3.0-13.0); NEUTROPHILS % (AUTO) 61.9 % (40.0-77.0); PLATELET COUNT (AUTO) 192 K/uL (130-400); RED BLOOD CELL COUNT(AUTO) 3.67 MIL/uL (4.00-5.50); RED CELL DISTRIBUTION WIDTH 14.1 % (11.0-15.5); WHITE BLOOD COUNT (AUTO) 6.4 K/uL (4.8-10.8)
--- NOTE | 2024-08-04 22:24 | EKG ---
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
[2024-08-04 22:27] LABS: CREATININE 0.9 mg/dL (0.5-1.0); POTASSIUM 4.1 mmol/L (3.5-5.1)
[2024-08-04] MEDS: ketOROlac 15MG/ML VIAL (15MG/ML) IV ONE (22:36)
--- NOTE | 2024-08-04 23:20 | ERN ---
General Chief Complaint: Chest Pain Stated Complaint: CHEST PAIN, LEFT ARM NUMBNESS Time Seen by MD: 22:02 History of Present Illness Initial Comments 73-year-old female brought in by EMS from home for chest pain and shoulder pain. Patient reports that she was woken up from sleep with pain to her left shoulder it radiates to her trapezius and down her left arm. She reports it does feel it bit in the chest. It is increased with movement and palpation. She had increases with deep respiration. She reports she has had arthritis before but never in the shoulder. She reports that the pain feels as though it is of the shoulder and she thinks it maybe arthritis, but she is unsure. She does have significant history of diabetes, hypertension, dyslipidemia. Patient was given nitroglycerin and aspirin prior to arrival by EMS. On arrival here she reports he does have some pain but it has subsided a bit. Allergies: Coded Allergies: No Known Drug Allergies (Unverified Allergy, Unknown, 01/11/19) Home Meds Active Scripts Docusate Sodium (Colace) 100 Mg Capsule, 100 MG PO TID for constipation, #30 CAP 0 Refills Prov:JOSEPH GILBERT MEDICAL CSR 04/15/24 Cephalexin Monohydrate (Keflex) 500 Mg Cap, 500 MG PO QID for 7 Days, #28 CAP Prov:JOSEPH GILBERT MEDICAL CSR 04/15/24 Acetaminophen (Tylenol) 500 Mg Tab, 500 MG PO Q6HPRN PRN for PAIN LEVEL 1 TO 5 for 5 Days, #30 TAB Prov:BHAKTI CISSE MD 02/07/22 Sitagliptin Phosphate (Januvia) 25 Mg Tablet, 25 MG PO DAILY for 30 Days, #30 TAB Prov:GRAHAM CHAIDEZ Jr., MD 07/11/19 Metformin HCl (Metformin HCl) 500 Mg Tablet, 500 MG PO TIDAC for 30 Days, #90 TAB Prov:GRAHAM CHAIDEZ Jr., MD 07/11/19 Atorvastatin Calcium (Atorvastatin Calcium) 20 Mg Tablet, 20 MG PO HS for 30 Days, #30 TAB Prov:GRAHAM CHAIDEZ Jr., MD 07/11/19 Past Medical History Past Medical History: Arthritis, Diabetes-Type II, High Cholesterol, Hypert ension Past Surgical History: Hysterectomy, Social History Social History: Negative ROS Dictation CONSTITUTIONAL: No chills, no fever, no weakness, no diaphoresis, no malaise. HEAD/FACE: No signs of trauma. EENT: No eye pain, no blurred vision, no tearing, no double vision, no ear pain, no ear discharge, no nose pain, no nasal congestion, no throat pain, no throat swelling, no mouth pain. RESPIRATORY: No cough, no orthopnea, no SOB, no stridor, no wheezing. CARDIOVASCULAR: No chest pain, no edema, no palpitations, no syncope. GASTROINTESTINAL/ABDOMINAL: No abdominal pain, no constipation, no diarrhea, no nausea, no vomiting. GENITOURINARY: No abnormal discharge, no dysuria, no frequent urination, no hematuria. No complaints of pain in the genitals. MUSCULOSKELETAL: Left shoulder/chest pain INTEGUMENTARY: No change in color, no change in hair/nails, no dryness, no lesion, no lumps, no rash. NEUROLOGICAL/PSYCH: No anxiety, not depressed, no emotional problem, no headache, no numbness, no pre-existing deficit, no history of seizures, no tremors, no weakness. HEMATOLOGIC/LYMPHATIC: Not anemic, no history of blood clots, no apparent bleeding, no bruising, glands not swollen. All Systems Negative, Except as Noted. Physical Exam Physical Exam Dictation VITAL SIGNS: Reviewed. GENERAL APPEARANCE: Alert, oriented x3, HEAD AND FACE: Non-traumatic. EYES: PERRL, pink conjunctivas, eyelid no trauma, anterior chamber clear. EARS: Pinnas intact and no signs of trauma or erythema. Ear canals clear and no discharge. TMs no erythema. NOSE: No discharge, no bleeding. OROPHARYNX: Mouth normal, teeth no caries, tongue pink. Pharynx clear, no erythema. Tonsils no exudates, no abscesses noted. Mucous membrane moist. NECK: Supple, non-tender, no thyromegaly, no masses, no JVD, no bruits. BREAST: Deferred. CHEST: No tenderness, no crepitus, no paradoxical movement, no retractions. LUNGS: Clear, well-ventilated, symmetric, no rales, no wheezing, no rhonchi, no stridor, good breath sounds bilaterally. HEART: Regular rate, regular rhythm, no murmur, no gallops. VASCULAR: No peripheral edema. ABDOMEN: Soft, positive bowel sounds, nondistended, no guarding, nontender, no rebound, no masses no hepatomegaly, no splenomegaly, no Martinez's sign, no hernias. RECTAL: Deferred. GENITAL: Deferred. NEUROLOGICAL: Normal speech, gross motor function intact, gross sensory function intact. MUSCULOSKELETAL: Neck nontender, full range of motion, back nontender, full range of motion. EXTREMITIES: Nontender, full range of motion. SKIN: Color pink, dry, no turgor, no rash, no lacerations, no abrasions, no contusions. LYMPHATICS: Deferred. Results Laboratory and Microbiology Lab and Micro Result Laboratory Tests Test 08/04/24 22:10 White Blood Count 6.4 K/uL (4.8-10.8) Red Blood Count 3.67 MIL/uL (4.00-5.50) L Hemoglobin 10.8 g/dL (12.0-16.0) L Hematocrit 32.9 % (36-48) L Mean Corpuscular Volume 89.6 fL (79-99) Mean Corpuscular Hemoglobin 29.4 pg (27.0-33.0) Mean Corpuscular Hemoglobin Concent 32.8 g/dL (32.0-36.0) Red Cell Distribution Width 14.1 % (11.0-15.5) Platelet Count 192 K/uL (130-400) Mean Platelet Volume 10.8 fL (7.5-10.5) H Immature Granulocyte % (Auto) 0.5 % (0-1) Neutrophils (%) (Auto) 61.9 % (40.0-77.0) Lymphocytes (%) (Auto) 30.0 % (21.0-51.0) Monocytes (%) (Auto) 6.2 % (3.0-13.0) Eosinophils (%) (Auto) 0.8 % (0.0-8.0) Basophils (%) (Auto) 0.6 % (0.0-5.0) Neutrophils # (Auto) 4.0 K/uL (1.8-7.7) Lymphocytes # (Auto) 1.9 K/uL (1.0-4.8) Monocytes # (Auto) 0.4 K/uL (0.1-1.0) Eosinophils # (Auto) 0.05 K/uL (0.00-0.70) Basophils # (Auto) 0.04 K/uL (0.00-0.20) Absolute Immature Granulocyte (auto 0.03 K/uL (0-1) Nucleated Red Blood Cells 0.0 % (0.0-0.19) Sodium Level 136 mmol/L (136-145) Potassium Level 4.1 mmol/L (3.5-5.1) Chloride Level 101 mmol/L (101-111) Carbon Dioxide Level 28 mmol/L (21-32) Blood Urea Nitrogen 26 mg/dL (7-18) H Creatinine 0.9 mg/dL (0.5-1.0) Glomerular Filtration Rate Calc 68 mL/min (>90) Random Glucose 374 mg/dL (70-105) H Total Calcium 8.9 mg/dL (8.5-10.1) Troponin I High Sensitivity 10 ng/L (4-50) MDM CC: Left-sided chest pain left-sided shoulder pain awakened the patient sleep Historian: Patient Comorbidities: Dyslipidemia, hypertension, diabetes Limitations by social determinants: None Differential diagnosis: ACS, arrhythmia, musculoskeletal type pain, arthritis, other. EKG (independently interpreted by me): Sinus rhythm, rate 67, left axis deviation, good R-wave progression, intervals are stable no STEMI. Labs (independently ordered and interpreted by me): No leukocytosis. Normocytic anemia hemoglobin 10.8. Chemistry panel shows stable electrolytes, elevated BUN to creatinine ratio consistent with dehydration glucose 374. Troponin stable. CXR (independently interpreted by me): No cardiomegaly pleural effusions focal infiltrates. Shoulder x-ray (independently interpreted by me): Arthritis, no acute fractures or major abnormalities. Treatment prior to arrival: Aspirin by EMS, nitroglycerin by EMS Treatment in ED: Toradol Patient has a heart score of four, high-risk. We will repeat the troponin, we will admit for chest pain workup. Patient is agreeable. ED Course Orders Procedure Category Date Status Time Cbc With Differential LAB 08/04/24 Complete 22:02 Chest 1vw RAD 08/04/24 Taken 22:02 12 Lead Ekg Tracing- EKG 08/04/24 Complete Technical 22:02 Troponin I High LAB 08/04/24 Complete Sensitivity 22:02 Basic Metabolic Panel LAB 08/04/24 Complete 22:02 Shoulder Comp 2+Vws Lt RAD 08/04/24 Taken 22:19 Ketorolac PHA 08/04/24 Complete Tromethamine 15mg/Ml 22:30 Troponin I High LAB 08/04/24 Logged Sensitivity 22:43 Current Medications Medications (Trade) Dose Ordered Sig/Benitez Route PRN Reason Start Time Stop Time Status Last Admin Dose Admin Ketorolac Tromethamine (toRADol) 15 mg ONCE ONCE IV 08/04/24 22:30 08/04/24 22:31 DC 08/04/24 22:36 Vital Signs Date Time Temp Pulse Resp B/P (MAP) Pulse Ox O2 Delivery O2 Flow Rate FiO2 08/04/24 22:37 97.5 67 16 104/53 99 Room Air* 0 21 08/04/24 22:06 75 16 118/63 98 Room Air 0 DX & DISP Disposition: Inpatient (Hospitalist) Departure Impression: Primary Impression: Unstable angina Additional Impression: Dehydration Condition: Stable Referrals: ASHA TIWARI (PCP) NEAL GHOSH DO Aug 04, 2024 23:20
--- NOTE | 2024-08-04 23:42 | HP ---
[facility] HISTORY AND PHYSICAL Date of Service: Aug 04, 2024 Time of Service: 23:42 PCP: Dr. Grayson Abrams Attending/supervising physician: Dr. An & Dr. Martinez HISTORY OF PRESENT ILLNESS: Mr. Elliott is a 73-year-old female with history of diabetes, hypertension, dyslipidemia. who presented to [facility] via EMS from home for evaluation of for chest pain and shoulder pain. Patient reports that she was woken up from sleep with pain to her left shoulder it radiates to her trapezius and down her left arm. S he reported it does feel it bit in the chest. It is increased with movement, palpation, and with deep respiration. She reported she has had arthritis before but never in the shoulder. She reported that the pain feels as though it is of the shoulder and she thinks it maybe arthritis, but she is unsure. Patient was given nitroglycerin and aspirin prior to arrival by EMS. On arrival here she reports he does have some pain but it has subsided a bit. Troponin levels were negative x2. EKG: Sinus rhythm, heart rate 67, left axial deviation, no STEMI chest x-ray and shoulder x-ray are pending. I assessed the patient in ED 17. The patient's breathing was even, unlabored, in no distress. The patient reports pain with movement of her left shoulder. I informed the patient of labs, diagnostics, and plan of care. She verbalized understanding as needed agreement with the plan. Plan and assessment as listed below. REVIEW OF SYSTEMS 12-point ROS reviewed with the patient. All pertinent positives mentioned above. Otherwise negative, noncontributory, non-pertinent. PAST MEDICAL HISTORY: As mentioned above PAST SURGICAL HISTORY: Hysterectomy, PAST SOCIAL HISTORY: Denied alcohol, tobacco, illicit drug use FAMILY HISTORY: Noncontributory Coded Allergies: No Known Drug Allergies (Unverified Allergy, Unknown, 01/11/19) PHYSICAL EXAM GENERAL APPEARANCE: The patient is awake, alert, and oriented, in no acute cardiopulmonary distress. NEUROLOGICAL: Cranial nerves II-XII grossly intact. Motor is 5/5 in bilateral upper and lower extremities proximal to distal. No sensory deficits. HEENT: Face is symmetric. Pupils are equal and reactive. Extraocular movements are intact. NECK: Supple. No JVD. No thyromegaly. No submental, submandibular, pre- /postauricular, occipital or supraclavicular lymphadenopathy. CHEST: Normal chest expansion. No Telemetry. LUNGS: Absence of any rales, rhonchi or any wheezing. CARDIOVASCULAR: Regular. S1 and S2 normal. No appreciable rubs, murmurs or gallops. ABDOMEN: Soft, nontender, and nondistended. There is no rebound, voluntary guarding, or rigidity. : Deferred. No Guzman. EXTREMITIES: Non-edematous and not cyanotic. No clubbing. Good capillary refill. Left shoulder pain with movement. SKIN: No skin breakdown. Vital Sign (Last 24 Hours) 08/04/24 23:33 Temp 97.5 Pulse 67 Resp 16 B/P (MAP) 111/56 Pulse Ox 99 O2 Delivery Room Air* O2 Flow Rate 0 FiO2 21 LABS: Laboratory: Test 08/04/24 22:10 Range/Units White Blood Count 6.4 4.8-10.8 K/uL Red Blood Count 3.67 L 4.00-5.50 MIL/uL Hemoglobin 10.8 L 12.0-16.0 g/dL Hematocrit 32.9 L 36-48 % Mean Corpuscular Volume 89.6 79-99 fL Mean Corpuscular Hemoglobin 29.4 27.0-33.0 pg Mean Corpuscular Hemoglobin Concent 32.8 32.0-36.0 g/dL Red Cell Distribution Width 14.1 11.0-15.5 % Platelet Count 192 130-400 K/uL Mean Platelet Volume 10.8 H 7.5-10.5 fL Immature Granulocyte % (Auto) 0.5 0-1 % Neutrophils (%) (Auto) 61.9 40.0-77.0 % Lymphocytes (%) (Auto) 30.0 21.0-51.0 % Monocytes (%) (Auto) 6.2 3.0-13.0 % Eosinophils (%) (Auto) 0.8 0.0-8.0 % Basophils (%) (Auto) 0.6 0.0-5.0 % Neutrophils # (Auto) 4.0 1.8-7.7 K/uL Lymphocytes # (Auto) 1.9 1.0-4.8 K/uL Monocytes # (Auto) 0.4 0.1-1.0 K/uL Eosinophils # (Auto) 0.05 0.00-0.70 K/uL Basophils # (Auto) 0.04 0.00-0.20 K/uL Absolute Immature Granulocyte (auto 0.03 0-1 K/uL Nucleated Red Blood Cells 0.0 0.0-0.19 % Sodium Level 136 136-145 mmol/L Potassium Level 4.1 3.5-5.1 mmol/L Chloride Level 101 101-111 mmol/L Carbon Dioxide Level 28 21-32 mmol/L Blood Urea Nitrogen 26 H 7-18 mg/dL Creatinine 0.9 0.5-1.0 mg/dL Glomerular Filtration Rate Calc 68 >90 mL/min Random Glucose 374 H 70-105 mg/dL Total Calcium 8.9 8.5-10.1 mg/dL Troponin I High Sensitivity 10 4-50 ng/L DIAGNOSTICS / RADIOLOGY: [ ] ASSESSMENT: Acute chest pain r/o ACS Acute left shoulder pain with movement, POA Dehydration/elevated BUN, POA Acute kidney injury, GFR 68 Acute on chronic kidney disease (GFR 76 in 02/07/2022 and GFR 92 on 04/15/2024) Diabetes mellitus with hyperglycemia Arthritis Hypertension Hypercholesteremia Anemia PLAN: -Admit to medical floor with continuous telemetry monitoring. -Troponin levels and EKG series. -2D echo in a.m. with heart clinic to read. -Lidocaine patch 4% Q 24 hours to left shoulder. -PRN medications for pain management, fever, N/V, constipation, hypertension. -Oxygen supplement as needed to maintain oxygen levels equal to or greater than 92% -Nitroglycerin sublingual as needed chest pain -Aspirin 81 mg p.o. daily. -Atorvastatin 40 mg PO daily. -Blood pressure checks every 4 hours and as needed. -Reconcile home medications once available. -Glucometer checks before meals and at bedtime with insulin regular sliding scale. -Blood pressure checks every 4 hours and as needed. - Monitor renal and liver function. -Monitor electrolytes and treat accordingly PRN -AM labs. + TSH, BNP, ESR, sed rate -GI and DVT prophylaxis -Further plan/orders per hospitalization course. ADVANCED CARE PLANNING 1. Which of the following were discussed? Hospice Care - No Therapeutic options - Yes Advance Directives - Yes Other discussions - 2. Discussed with who? The patient 3. Voluntary nature of this service was explained to the patient? Yes 4. Amount of time spent - __ Over 40 minutes 5. Reviewed by Physician? (if this service was performed by YIMI) Yes / No ATTESTATION BY PHYSICIAN I have seen and examined the patient. I reviewed the documentation, medical decision making, and treatment plan as noted by the mid-level provider above. I agree with the findings and plan of care. [facility] Aug 04, 2024 23:42
[2024-08-05] VITALS (7 sets, daily range): BP systolic 112–136; BP diastolic 61–77; PULSE 55–64; RESP 18–20; TEMP 97.5–98.3; O2SAT 97
--- NOTE | 2024-08-05 01:00 | NUR ---
GAVE REPORT TO KARLY GALLARDO.
[2024-08-05] MEDS ORDERED: NITROGLYCERIN 0.4 MG SL TAB SL PRN ×2 (01:30→08:00)
[2024-08-05] MEDS: LIDOCAINE 4% ADH..PATCH TP SCH (01:50)
[2024-08-05] MEDS: INSULIN humuLIN R 100 UNIT/ML 3ML SQ SCH ×2 (06:13→11:30)
[2024-08-05 06:31] LABS: HEMATOCRIT 31.2 % (36-48); MEAN CORPUSCULAR HEMOGLOBIN 28.8 pg (27.0-33.0); MEAN CORPUSCULAR HGB CONC 32.7 g/dL (32.0-36.0); MEAN CORPUSCULAR VOLUME 88.1 fL (79-99); RED BLOOD CELL COUNT(AUTO) 3.54 MIL/uL (4.00-5.50); WHITE BLOOD COUNT (AUTO) 6.6 K/uL (4.8-10.8)
[2024-08-05 06:52] LABS: HEMOGLOBIN A1C 8.4 % (4.0-6.0)
[2024-08-05] MEDS ORDERED: PoTASSium chloRIDE 20MEQ ER 20 MEQ ERTAB PO PRN (08:00)
[2024-08-05] MEDS ORDERED: LACTULOSE 20 GM/30 ML UDCUP PO PRN (08:00)
[2024-08-05] MEDS ORDERED: GLUCAGON 1MG KIT 1 MG ML IM PRN (08:00)
[2024-08-05] MEDS ORDERED: doCUSate SODIUM 100 MG CAP PO PRN (08:00)
[2024-08-05] MEDS ORDERED: PoTASSium chl 10% ELIXIR 20MEQ 20 MEQ/15 ML UDCUP PO PRN (08:00)
[2024-08-05] MEDS ORDERED: acetaMINOPHEN 325 MG TAB PO PRN (08:00)
[2024-08-05] MEDS ORDERED: DEXTROSE 50%-WATER 50 ML DISP.SYRIN IV PRN (08:00)
[2024-08-05] MEDS ORDERED: acetaMINOPHEN 650 MG SUPPOSITORY RC PRN (08:00)
[2024-08-05] MEDS ORDERED: TEMAZepam 15 MG CAPSULE PO PRN (08:00)
[2024-08-05] MEDS ORDERED: ondanSETRON 4MG INJ IVP PRN (08:00)
[2024-08-05] MEDS ORDERED: ketOROlac 15MG/ML VIAL (15MG/ML) IM PRN (08:00)
[2024-08-05] MEDS ORDERED: PoTASSium chloRIDE 20MEQ/100ML 100 ML IV PRN (08:00)
[2024-08-05] MEDS ORDERED: LAbetaLOL 20MG SYG IV PRN (08:00)
[2024-08-05 08:02] LABS: BILIRUBIN,TOTAL 0.2 mg/dL (0.2-1.0); CREATININE 0.7 mg/dL (0.5-1.0); MAGNESIUM 1.8 mg/dL (1.80-2.40); PHOSPHORUS 3.8 mg/dL (2.5-4.9); POTASSIUM 4.5 mmol/L (3.5-5.1); THYROID STIMULATING HORMONE 2.4 uIU/mL (0.36-3.74)
[2024-08-05] MEDS: FAMOTIDINE 20MG VIAL IV SCH (08:51)
[2024-08-05] MEDS: ASPIRIN 81MG CHEW TAB PO SCH (08:51)
[2024-08-05] MEDS: HEParin 5,000 UNIT VIAL SQ SCH (08:52)
--- NOTE | 2024-08-05 11:20 | NUR ---
DCP: HOME Pt currently lives with her sps, son, and dgt in law in her son's home. Pt does not have any DME, home health, or provider services. Pt does need some assistance in completing ADLs and sps tends to help her at times with bathing and making meals. PCP is Dr. Shiva Abrams and uses [facility] for any RX needs. At [place] pt will go home and family can assist with transportation. Addendum: 08/05/24 at 1123 by CARO BURNS SS Amended: Links added.
[2024-08-05 11:41] LABS: RETICULOCYTE % (AUTO) 1.85 % (0.42-2.23)
[2024-08-05 11:56] LABS: % IRON SATURATION 17.4 % (22-44)
--- NOTE | 2024-08-05 14:24 | PN ---
[facility] PROGRESS NOTE Date of Service: Aug 05, 2024 Time of Service: 14:09 SUBJECTIVE: Mr. Elliott is a 73-year-old female with history of diabetes, hypertension, dyslipidemia. who was brought by EMS to [facility] for chest pain and shoulder pain. Patient reported that she felt bilateral shoulder pain and chest pain yesterday evening while traveling from her husbands appointment which subsided with Tylenol and she felt asleep . She again felt sudden onset left chest pain radiating to left arm while she was sleeping and her left upper limb felt heavy after that . Pain was 6/10 intensity lasted for >30 minutes and subsided while she was given medications by the EMS. No similar h/o chest pain in the past . She also had bilateral shoulder pain which she attributed to her h/o arthritis . She is admitted for further evaluation and management . 08.05.24: Her EKG showed sinus rhythm, heart rate 67, left axial deviation, no STEMI . Troponin, BNP levels were normal .Labs remarkable for hyperglycemia . Given the h/o longstanding diabetes mellitus and chest pain , we will consult Cardiology for their recommendations for a possible cardiac work up inpatient vs outpatient. She denies any chest pain at the time of my evaluation. She c/o shoulder pain which is musculoskeletal in origin . Pending CT shoulder and neck . REVIEW OF SYSTEMS 12-point ROS reviewed with the patient. All pertinent positives mentioned above. Otherwise negative, noncontributory, non-pertinent. PHYSICAL EXAM GENERAL APPEARANCE: The patient is awake, alert, and oriented, in no acute cardiopulmonary distress. NEUROLOGICAL: Cranial nerves II-XII grossly intact. Motor is 5/5 in bilateral upper and lower extremities proximal to distal. No sensory deficits. HEENT: Face is symmetric. Pupils are equal and reactive. Extraocular movements are intact. NECK: Supple. No JVD. No thyromegaly. No submental, submandibular, pre- /postauricular, occipital or supraclavicular lymphadenopathy. CHEST: Normal chest expansion. No Telemetry. LUNGS: Absence of any rales, rhonchi or any wheezing. CARDIOVASCULAR: Regular. S1 and S2 normal. No appreciable rubs, murmurs or gallops. ABDOMEN: Soft, nontender, and nondistended. There is no rebound, voluntary guarding, or rigidity. : Deferred. No Guzman. EXTREMITIES: Non-edematous and not cyanotic. No clubbing. Good capillary refill. Left shoulder pain with movement. SKIN: No skin breakdown. Vital Signs (last 8hr) Date Time Temp Pulse Resp B/P (MAP) Pulse Ox O2 Delivery O2 Flow Rate FiO2 08/05/24 11:59 97.9 62 18 124/70 99 08/05/24 07:49 98.2 56 20 128/70 100 Room Air LABS: Laboratory: Test 08/05/24 06:13 08/05/24 05:41 08/04/24 22:10 Range/Units White Blood Count 6.6 4.8-10.8 K/uL Red Blood Count 3.54 L 4.00-5.50 MIL/uL Hemoglobin 10.2 L 12.0-16.0 g/dL Hematocrit 31.2 L 36-48 % Mean Corpuscular Volume 88.1 79-99 fL Mean Corpuscular Hemoglobin 28.8 27.0-33.0 pg Mean Corpuscular Hemoglobin Concent 32.7 32.0-36.0 g/dL Red Cell Distribution Width 14.0 11.0-15.5 % Platelet Count 197 130-400 K/uL Mean Platelet Volume 10.8 H 7.5-10.5 fL Nucleated Red Blood Cells 0.0 0.0-0.19 % Erythrocyte Sedimentation Rate 18 0-30 MM/HR Reticulocyte Count (auto) 1.53286 0.42-2.23 % Immature Reticulocyte Fraction 17.00 H 0.18-0.48 % Sodium Level 138 136-145 mmol/L Potassium Level 4.5 3.5-5.1 mmol/L Chloride Level 105 101-111 mmol/L Carbon Dioxide Level 25 21-32 mmol/L Blood Urea Nitrogen 29 H 7-18 mg/dL Creatinine 0.7 0.5-1.0 mg/dL Glomerular Filtration Rate Calc 92 >90 mL/min Random Glucose 194 H 70-105 mg/dL Hemoglobin A1c 8.4 H 4.0-6.0 % Estimated Average Glucose (eAG) 194 H 70-126 mg/dL Total Calcium 8.4 L 8.5-10.1 mg/dL Phosphorus Level 3.8 2.5-4.9 mg/dL Magnesium Level 1.80 1.80-2.40 mg/dL Iron Level 55 50-170 mcg/dL Total Iron Binding Capacity 316 250-450 mcg/dL Percent Iron Saturation 17.4 L 22-44 % Ferritin 11 L 15-150 ng/mL Total Bilirubin 0.2 0.2-1.0 mg/dL Aspartate Amino Transf (AST/SGOT) 11 10-37 U/L Alanine Aminotransferase (ALT/SGPT) 20 12-78 U/L Alkaline Phosphatase 41 L 50-136 U/L Troponin I High Sensitivity 10 4-50 ng/L C-Reactive Protein, Quantitative 0.50 0.5-3.0 mg/L DI-Pva-R-Type Natriuretic Peptide 166 H 0-125 pg/mL Total Protein 6.0 6.0-8.3 g/dL Albumin 3.0 L 3.5-5.0 g/dL Vitamin B12 Level 272 193-986 pg/mL Thyroid Stimulating Hormone (TSH) 2.40 0.36-3.74 uIU/mL Whole Blood Glucose 197 H 70-110 MG/DL Immature Granulocyte % (Auto) 0.5 0-1 % Neutrophils (%) (Auto) 61.9 40.0-77.0 % Lymphocytes (%) (Auto) 30.0 21.0-51.0 % Monocytes (%) (Auto) 6.2 3.0-13.0 % Eosinophils (%) (Auto) 0.8 0.0-8.0 % Basophils (%) (Auto) 0.6 0.0-5.0 % Neutrophils # (Auto) 4.0 1.8-7.7 K/uL Lymphocytes # (Auto) 1.9 1.0-4.8 K/uL Monocytes # (Auto) 0.4 0.1-1.0 K/uL Eosinophils # (Auto) 0.05 0.00-0.70 K/uL Basophils # (Auto) 0.04 0.00-0.20 K/uL Absolute Immature Granulocyte (auto 0.03 0-1 K/uL Current Medications Medications (Trade) Dose Ordered Sig/Benitez Route PRN Reason Start Time Stop Time Status Last Admin Dose Admin Acetaminophen (TYLenol 325MG TAB) 650 mg Q6H PRN PO FEVER >100F/PAIN LEVEL 1-3 08/05/24 08:00 09/04/24 07:59 Acetaminophen (TYLenol 650MG SUPPOSITORY) 650 mg Q6H PRN RC FEVER >100F/PAIN 1-3 IF NPO 08/05/24 08:00 09/04/24 07:59 Aspirin (Aspirin 81mg Chew Tab) 81 mg DAILY PO 08/05/24 09:00 09/04/24 08:59 08/05/24 08:51 81 MG Atorvastatin Calcium (LIPItor 40MG) 40 mg HS PO 08/05/24 21:00 09/04/24 20:59 Dextrose (D50w) 50 ml AD PRN IV HYPOGLYCEMIA PROTOCOL 08/05/24 08:00 09/04/24 07:59 Docusate Sodium (COLace 100MG CAP) 100 mg BID PRN PO c 08/05/24 08:00 09/04/24 07:59 Famotidine (Pepcid 20mg Vial) 20 mg BID IV 08/05/24 09:00 09/04/24 08:59 08/05/24 08:51 20 MG Glucagon (Glucagon 1mg Kit) 1 mg AD PRN IM HYPOGLYCEMIA PROTOCOL 08/05/24 08:00 09/04/24 07:59 Heparin Sodium (Porcine) (HEParin 5,000 UNIT VIAL) 5,000 unit Q12H SQ 08/05/24 08:00 09/04/24 07:59 08/05/24 08:52 5,000 UNIT Insulin Human Regular (humuLIN R 100 UNIT/ML 3ML) INSULIN SLIDING SCAL... ACHS SQ 08/05/24 07:30 09/04/24 07:29 08/05/24 06:13 4 UNIT Insulin Human Regular (humuLIN R 100 UNIT/ML 3ML) INSULIN SLIDING SCAL... ACHS SQ 08/05/24 11:30 09/04/24 11:29 Ketorolac Tromethamine (toRADol) 15 mg Q6H PRN IM MODERATE PAIN (4-6) 08/05/24 08:00 08/10/24 07:59 Labetalol HCl (TRANdate 20MG SYG) 10 mg Q2H PRN IV SBP GREATER THAN 160 08/05/24 08:00 09/04/24 07:59 Lactulose (Constulose 20gm/ 30ml Udcup) 20 gm Q6H PRN PO CONSTIPATION 08/05/24 08:00 09/04/24 07:59 Lidocaine (Lidocaine Patch 4%) 1 each Q24H TP 08/05/24 01:20 09/04/24 01:19 08/05/24 01:50 1 EACH Magnesium Sulfate 50 ml @ 0 mls/hr PROTOCOL PRN IV MAGNESIUM PROTOCOL 08/05/24 08:00 09/04/24 07:59 Nitroglycerin (Nitrostat) 0.4 mg AD PRN SL CHEST PAIN 08/05/24 01:30 08/05/24 07:57 DC Nitroglycerin (Nitrostat) 0.4 mg AD PRN SL CHEST PAIN 08/05/24 08:00 09/04/24 07:59 Ondansetron HCl (zoFRAN 4MG INJ) 4 mg Q6H PRN IVP NAUSEA/VOMITING 08/05/24 08:00 09/04/24 07:59 Potassium Chloride 100 ml @ 100 mls/hr AD PRN IV POTASSIUM PROTOCOL 08/05/24 08:00 09/04/24 07:59 Potassium Chloride (K-Dur/Klor-Con 20meq) 20 meq AD PRN PO POTASSIUM PROTOCOL 08/05/24 08:00 09/04/24 07:59 Potassium Chloride (KCl 10% Elixir 20meq/15ml) 20 meq AD PRN PO POTASSIUM PROTOCOL 08/05/24 08:00 09/04/24 07:59 Temazepam (restORIL 15 MG CAP) 15 mg HS PRN PO INSOMNIA/SLEEP 08/05/24 08:00 09/04/24 07:59 Tramadol HCl (UltRAM) 50 mg Q6H PRN PO MODERATE PAIN (7-10) 08/05/24 08:00 08/10/24 07:59 DIAGNOSTICS / RADIOLOGY: [ ] ASSESSMENT: Acute chest pain r/o ACS Acute bilateral shoulder pain with movement, POA Dehydration/elevated BUN, POA Anemia , POA Acute on chronic kidney disease (GFR 76 in 02/07/2022 and GFR 92 on 04/15/2024) Diabetes mellitus with hyperglycemia Arthritis Hypertension Hypercholesteremia Anemia PLAN: Acute chest pain r/o ACS , POA negative cardiac enzymes and EKG no further episodes of chest pain Pending Echo and Cardiology recommendations Acute bilateral shoulder pain with movement, POA pending CT shoulder and neck continue pain medications as directed Anemia , POA will check the iron panel Acute on chronic kidney disease (GFR 76 in 02/07/2022 and GFR 92 on 04/15/2024) avoid nephrotoxic medications continue to monitor Diabetes mellitus with hyperglycemia A1C 8.4 continue sliding scale insulin Hypoglycemia protocol in place ATTESTATION BY PHYSICIAN I have seen and examined the patient. I reviewed the documentation, medical decision making, and treatment plan as noted by the resident provider above. I agree with the findings and plan of care. VICENTA KENT MD, ANCHU A MD Aug 05, 2024 14:24
[2024-08-05] MEDS ORDERED: LOSA50TA64 PO (15:07)
[2024-08-05] MEDS ORDERED: ROSU10TA72 PO (15:07)
[2024-08-05] MEDS ORDERED: GLIP1TAB6 PO (15:07)
[2024-08-05] MEDS ORDERED: SITA100T12 PO (15:07)
[2024-08-05] MEDS ORDERED: DAPA10TA PO (15:07)
[2024-08-05] MEDS ORDERED: MULT-1250 PO (15:07)
[2024-08-05] MEDS ORDERED: CA/D1TAB7 PO (15:07)
[2024-08-05] MEDS ORDERED: FISH1CAP27 PO (15:07)
[2024-08-05] MEDS ORDERED: OMEG1CAP31 PO (15:07)
--- NOTE | 2024-08-05 16:06 | CONS ---
[facility] CARDIOLOGY CONSULTATION REPORT Cardiology consultation note dictated for Darell Barger MD Date Patient Seen: Aug 05, 2024 Requesting Physician: Chalo Rothman MD Reason for Consultation: Chest pain History of Present Illness: This is a 73-year-old female with a past medical history of hypertension, dyslipidemia, and diabetes mellitus type 2 who presented to the ED with complaints of left chest and shoulder discomfort. Cardiology has been consulted for chest pain. The patient endorses left chest, left shoulder, left posterior neck, and left shoulder blade discomfort with movement and palpation with left hand numbness. Troponin of 10, 9, and 10. EKG was NSR and nonischemic. Echocardiogram is pending. CT of the cervical spine and bilateral upper extremity are pending. Will obtain EKG for review. Past Medical History: As per HPI and summarized below Past Surgical History: Oophorectomy Family History: The patient's mother and father had diabetes mellitus type 2. Social History: The patient lives with her . Habits: The patient denies alcohol or illicit drug use, but she does admit to smoking 1 cigarette per day. Home Meds: Caltrate 600+ D3,1 tab daily Multivitamin daily Lovaza 2 caps bid [place] fatty acid/fish oil 300 mg-1000 mg,1 capsule t.i.d. Farxiga 10 mg daily Januvia 100 mg daily Glipizide/metformin5-500 mg, 2 tablets b.i.d. Losartan 50 mg daily Rosuvastatin 10 mg q.h.s. Current Meds: Medications Dose Ordered Sig/Benitez Start Time Stop Time Status Last Admin Aspirin 81 mg DAILY 08/05/24 09:00 09/04/24 08:59 08/05/24 08:51 Atorvastatin Calcium 40 mg HS 08/05/24 21:00 09/04/24 20:59 Lidocaine 1 each Q24H 08/05/24 01:20 09/04/24 01:19 08/05/24 01:50 Insulin Human Regular INSULIN SLIDING SCAL... ACHS 08/05/24 07:30 09/04/24 07:29 08/05/24 06:13 Dextrose 50 ml AD PRN 08/05/24 08:00 09/04/24 07:59 Glucagon 1 mg AD PRN 08/05/24 08:00 09/04/24 07:59 Magnesium Sulfate 50 ml @ 0 mls/hr PROTOCOL PRN 08/05/24 08:00 09/04/24 07:59 Potassium Chloride 100 ml @ 100 mls/hr AD PRN 08/05/24 08:00 09/04/24 07:59 Potassium Chloride 20 meq AD PRN 08/05/24 08:00 09/04/24 07:59 Potassium Chloride 20 meq AD PRN 08/05/24 08:00 09/04/24 07:59 Acetaminophen 650 mg Q6H PRN 08/05/24 08:00 09/04/24 07:59 Acetaminophen 650 mg Q6H PRN 08/05/24 08:00 09/04/24 07:59 Tramadol HCl 50 mg Q6H PRN 08/05/24 08:00 08/10/24 07:59 Lactulose 20 gm Q6H PRN 08/05/24 08:00 09/04/24 07:59 Docusate Sodium 100 mg BID PRN 08/05/24 08:00 09/04/24 07:59 Temazepam 15 mg HS PRN 08/05/24 08:00 09/04/24 07:59 Ondansetron HCl 4 mg Q6H PRN 08/05/24 08:00 09/04/24 07:59 Labetalol HCl 10 mg Q2H PRN 08/05/24 08:00 09/04/24 07:59 Famotidine 20 mg BID 08/05/24 09:00 09/04/24 08:59 08/05/24 08:51 Heparin Sodium (Porcine) 5,000 unit Q12H 08/05/24 08:00 09/04/24 07:59 08/05/24 08:52 Nitroglycerin 0.4 mg AD PRN 08/05/24 08:00 09/04/24 07:59 Ketorolac Tromethamine 15 mg Q6H PRN 08/05/24 08:00 08/10/24 07:59 Losartan Potassium 50 mg AM 08/06/24 09:00 09/05/24 08:59 Home Med ([place]-3 Acid Ethyl Est... BID 08/05/24 21:00 09/04/24 20:59 Review of Systems: CONST: No fever, fatigue, or weight changes. EYES: No recent vision problems. ENT: No congestion, ear pain, or sore throat. C/V: No chest pain, palpitations, or edema. RESP: No cough, congestion, wheezing or shortness of breath. GI: No abdominal pain, nausea, vomiting, constipation, or diarrhea. : No incontinence or dysuria. SKIN: No rash. NEURO: No headache, focal numbness or weakness, dizziness, or seizures. PSYCH: No depression or anxiety. HEME: No abnormal bruising or bleeding. LYMPH: No swollen glands. MS: Admits to left hand numbness, left chest, shoulder, posterior neck, and shoulder blade discomfort. Physical Examination: GENERAL: No acute distress. HEAD: Normal with no signs of head trauma. EYES: PERRLA, EOMI, conjunctiva and sclera normal. ENT: Hearing grossly intact, normal oropharynx. NECK: Supple without JVD. There is no tenderness, lymphadenopathy, or masses. No thyromegaly. Normal carotid upstrokes without bruits. LUNGS: Clear breath sounds bilaterally. No wheezes, or rhonchi. HEART: Normal rate and rhythm. Normal S1 and S2 without murmurs, gallop or rub. VASC: Peripheral pulses +2 bilaterally. ABD: Bowel sounds normal, soft, nontender, no masses, no organomegaly. No audible bruits. : Not examined LYMPH: No lymphadenopathy noted. EXT: No clubbing, cyanosis or edema. SKIN: No rashes or lesions noted. NEURO: Awake, alert, and oriented x3. No focal sensory or strength deficits noted. Vital Signs (last 8hr) Date Time Temp Pulse Resp B/P (MAP) Pulse Ox O2 Delivery O2 Flow Rate FiO2 08/05/24 11:59 97.9 62 18 124/70 99 Laboratory: Hematology Labs: Test 08/05/24 06:13 08/04/24 22:10 Range/Units White Blood Count 6.6 4.8-10.8 K/uL Red Blood Count 3.54 L 4.00-5.50 MIL/uL Hemoglobin 10.2 L 12.0-16.0 g/dL Hematocrit 31.2 L 36-48 % Mean Corpuscular Volume 88.1 79-99 fL Mean Corpuscular Hemoglobin 28.8 27.0-33.0 pg Mean Corpuscular Hemoglobin Concent 32.7 32.0-36.0 g/dL Red Cell Distribution Width 14.0 11.0-15.5 % Platelet Count 197 130-400 K/uL Mean Platelet Volume 10.8 H 7.5-10.5 fL Nucleated Red Blood Cells 0.0 0.0-0.19 % Erythrocyte Sedimentation Rate 18 0-30 MM/HR Reticulocyte Count (auto) 1.04898 0.42-2.23 % Immature Reticulocyte Fraction 17.00 H 0.18-0.48 % Immature Granulocyte % (Auto) 0.5 0-1 % Neutrophils (%) (Auto) 61.9 40.0-77.0 % Lymphocytes (%) (Auto) 30.0 21.0-51.0 % Monocytes (%) (Auto) 6.2 3.0-13.0 % Eosinophils (%) (Auto) 0.8 0.0-8.0 % Basophils (%) (Auto) 0.6 0.0-5.0 % Neutrophils # (Auto) 4.0 1.8-7.7 K/uL Lymphocytes # (Auto) 1.9 1.0-4.8 K/uL Monocytes # (Auto) 0.4 0.1-1.0 K/uL Eosinophils # (Auto) 0.05 0.00-0.70 K/uL Basophils # (Auto) 0.04 0.00-0.20 K/uL Absolute Immature Granulocyte (auto 0.03 0-1 K/uL Chemistry Labs: Test 08/05/24 06:13 08/05/24 05:41 Range/Units Sodium Level 138 136-145 mmol/L Potassium Level 4.5 3.5-5.1 mmol/L Chloride Level 105 101-111 mmol/L Carbon Dioxide Level 25 21-32 mmol/L Blood Urea Nitrogen 29 H 7-18 mg/dL Creatinine 0.7 0.5-1.0 mg/dL Glomerular Filtration Rate Calc 92 >90 mL/min Random Glucose 194 H 70-105 mg/dL Hemoglobin A1c 8.4 H 4.0-6.0 % Estimated Average Glucose (eAG) 194 H 70-126 mg/dL Total Calcium 8.4 L 8.5-10.1 mg/dL Phosphorus Level 3.8 2.5-4.9 mg/dL Magnesium Level 1.80 1.80-2.40 mg/dL Iron Level 55 50-170 mcg/dL Total Iron Binding Capacity 316 250-450 mcg/dL Percent Iron Saturation 17.4 L 22-44 % Ferritin 11 L 15-150 ng/mL Total Bilirubin 0.2 0.2-1.0 mg/dL Aspartate Amino Transf (AST/SGOT) 11 10-37 U/L Alanine Aminotransferase (ALT/SGPT) 20 12-78 U/L Alkaline Phosphatase 41 L 50-136 U/L Troponin I High Sensitivity 10 4-50 ng/L C-Reactive Protein, Quantitative 0.50 0.5-3.0 mg/L IX-Tln-O-Type Natriuretic Peptide 166 H 0-125 pg/mL Total Protein 6.0 6.0-8.3 g/dL Albumin 3.0 L 3.5-5.0 g/dL Vitamin B12 Level 272 193-986 pg/mL Thyroid Stimulating Hormone (TSH) 2.40 0.36-3.74 uIU/mL Whole Blood Glucose 197 H 70-110 MG/DL Diagnostics / Radiology: Impression and Plan: Musculoskeletal chest pain Hypertension Dyslipidemia Diabetes mellitus type 2 Musculoskeletal chest pain Troponin of 10, 9, and 10, EKG was NSR and nonischemic If Echocardiogram is normal, no further work-up by cardio CT of the cervical spine and bilateral upper extremity are pending ATTESTATION BY PHYSICIAN I have seen and examined the patient, reviewed the above documentation, participated in medical decision making, made necessary modifications, and agree with the treatment plan as documented by my mid-level provider above. This pain is highly atypical, and although she does get numbness in her left arm, virtually all of the pain is exacerbated by various motions of shoulder and arm. She most likely has radicular pain to explain the arm discomfort, and I am quite certain that her pain is musculoskeletal in nature. I would not pursue ad ditional cardiac testing at this time. MD OC Streeter VALERIE L [facility] Aug 05, 2024 16:06 DARELL BARGER MD Aug 05, 2024 19:00
--- NOTE | 2024-08-05 16:17 | HMCIMG ---
SHOULDER COMP 2+VWS LT HISTORY: Pain COMPARISON: None TECHNIQUE: 2 images of the left shoulder were obtained. FINDINGS: There is no acute displaced fracture or dislocation. Degenerative changes are seen. IMPRESSION: 1. Findings as described above.
--- NOTE | 2024-08-05 16:18 | HMCIMG ---
CHEST 1VW HISTORY: Chest pain COMPARISON: None FINDINGS: A frontal projection of the chest was obtained. No acute pulmonary infiltrates is seen. The heart is borderline enlarged. Degenerative changes are seen. No evidence of aortic calcification is seen. IMPRESSION: 1. No acute pulmonary infiltrate is seen.
[2024-08-05] MEDS: traMADol HCL 50 MG TABLET PO PRN (17:28)
--- NOTE | 2024-08-05 17:29 | HMCSR ---
APPROVED REPORT EXAM: Two-dimensional and M-mode echocardiogram with Doppler and color Doppler. INDICATION ICD: Left shoulder pain Chest Pain 2D Dimensions RVDd3.1 cmLVEF(%)71.5 (>50%)LVED Vol(simp.)88.0 mL IVSd0.7 (0.7-1.1cm)FS(%)41 %LVES Vol(simp.)38.0 mL LVDd4.4 (3.8-5.6cm)LA (2D)4.2 (1.6-4.0cm)LVEF(%, simp.)57 % PWd1.1 (0.7-1.1cm)Ao Root(2D)2.7 (2.0-3.7cm)LA ESV INDEX (BP)29.33 mL/m2 LVDs2.6 (2.5-4.0cm)LVOT diam1.8 (1.8-2.4cm) IVC diam1.3 cm Deformation Strain Apical 4-16.6 % Apical 2-17.7 % Apical 3-18.5 % Global Strain-17.6 % M-Mode Dimensions EPSS0.3 cm LA (MM)4.4 (1.6-4.0cm) Ao Root(MM)3.1 (2.0-3.7cm) Aortic Valve AoV Vmax1.2 m/Sharon Peak GR5.3 mmHgLVOT Vmax1.0 m/s AoV VTI0.3 mAo Mean GR2.9 mmHgLVOT VTI0.27 m TRISTAN (VMAX)2.23 cm2AVA (VTI) 2.2 cm2 Mitral Valve MV E Vmax76.3 cm/sDECEL Vinj907 ms MV A Vmax77.7 cm/sP 1/2 T66 ms E/A ratio1.0MVA (PHT)3.3 cm2 TDI E/E' Sdnedi83.8E/E' Lateral8.2 Medial E' Peak V7.08 cm/sLateral E' Peak V9.27 cm/s Pulmonary Valve PV Vmax0.8 m/s PV Peak GR2.8 mmHg Tricuspid Valve TR Vmax2.4 m/sRAP (EST) 3 pnVlDPFU47.9 mmHg TR Peak GR22.9 mmHg Left Ventricle The left ventricle is normal size. GLS -18.0%. There is normal LV segmental wall motion. There is nor mal left ventricular wall thickness. The LVEF is 65%. The left ventricular diastolic function is norm al. Right Ventricle The right ventricle is normal size. The right ventricular systolic function is normal. Atria The left atrium size is normal. The right atrium size is normal. Aortic Valve The aortic valve is normal in structure. No aortic regurgitation is present. There is no aortic valvu lar stenosis. Mitral Valve The mitral valve is normal in structure. There is trace of mitral valve regurgitation noted. There is no mitral valve stenosis. Tricuspid Valve The tricuspid valve is normal in structure. There is trace of tricuspid valve regurgitation noted. Pulmonic Valve The pulmonary valve is normal in structure. There is no pulmonic valvular regurgitation. Great Vessels The aortic root is normal in size. The IVC is normal in size and collapses >50% with inspiration. Pericardium There is no pericardial effusion. Other Information Quality : Adequate
[2024-08-05] MEDS: atorVAStatin 40 MG TABLET PO SCH (20:19)
[2024-08-05] MEDS: OMEGA ACID ETHYL ESTERS PO SCH (20:32)
[2024-08-05] MEDS ORDERED: FISH OIL 1000 MG/CAP PO SCH (21:00)
[2024-08-05] MEDS ORDERED: NON-FORMULARY MEDICATION 1 EACH (Rosuvastatin Calcium 1 TAB) PO SCH (21:00)
[2024-08-06] VITALS: BP 110/61; PULSE 66; RESP 18; TEMP 98.1
[2024-08-06 04:00] VITALS: BP 122/69; PULSE 65; RESP 16; TEMP 97.7
[2024-08-06 06:38] LABS: MEAN CORPUSCULAR HEMOGLOBIN 28.8 pg (27.0-33.0); MEAN CORPUSCULAR HGB CONC 31.6 g/dL (32.0-36.0); MEAN CORPUSCULAR VOLUME 91.3 fL (79-99); RED BLOOD CELL COUNT(AUTO) 4.16 MIL/uL (4.00-5.50); RED CELL DISTRIBUTION WIDTH 14.2 % (11.0-15.5); WHITE BLOOD COUNT (AUTO) 6.1 K/uL (4.8-10.8)
[2024-08-06 07:00] LABS: CREATININE 0.7 mg/dL (0.5-1.0); MAGNESIUM 1.7 mg/dL (1.80-2.40); PHOSPHORUS 3.5 mg/dL (2.5-4.9); POTASSIUM 4.3 mmol/L (3.5-5.1)
[2024-08-06 07:31] VITALS: O2SAT 97
[2024-08-06] MEDS ORDERED: ketOROlac 15MG/ML VIAL (15MG/ML) IV PRN (08:00)
[2024-08-06 08:22] VITALS: BP 127/66; PULSE 58; RESP 18; TEMP 98.1
[2024-08-06] MEDS: LoSARTan 50 MG TABLET PO SCH (10:00)
[2024-08-06] MEDS: MAGNESIUM 2GM PREMIX 50ML 50 ML IV PRN (10:02)
--- NOTE | 2024-08-06 10:37 | DS ---
Discharge Summary Hospital Course Summary: Mr. Elliott is a 73-year-old female with history of diabetes, hypertension, dyslipidemia. who was brought by EMS to [facility] for chest pain and shoulder pain on 08.04.24. Patient reported that she felt bilateral shoulder pain and chest pain this evening while traveling from her husbands appointment which subsided with Tylenol and she felt asleep . She again felt sudden onset left chest pain radiating to left arm while she was sleeping and her left upper limb felt heavy after that . Pain was 6/10 intensity lasted for >30 minutes and subsided while she was given medications by the EMS. No similar h/o chest pain in the past . She also had bilateral shoulder pain which she attributed to her h/o arthritis . She is admitted for further evaluation and management . Her EKG showed sinus rhythm, heart rate 67, left axial deviation, no STEMI . Troponin, BNP levels were normal .Labs remarkable for hyperglycemia . Given the h/o longstanding diabetes mellitus and chest pain ,Cardiology was consulted . Cardiology recommended no further work up at this time. She denies any further chest pain and her shoulder pain which is musculoskeletal in origin has improved . Patient is clinically stable at the time of discharge . Vp Human Resources(s): [facility] CARDIOLOGY CONSULTATION REPORT Cardiology consultation note dictated for Darell Barger MD Date Patient Seen: Aug 05, 2024 Requesting Physician: Chalo Rothman MD Reason for Consultation: Chest pain History of Present Illness: This is a 73-year-old female with a past medical history of hypertension, dyslipidemia, and diabetes mellitus type 2 who presented to the ED with complaints of left chest and shoulder discomfort. Cardiology has been consulted for chest pain. The patient endorses left chest, left shoulder, left posterior neck, and left shoulder blade discomfort with movement and palpation with left hand numbness. Troponin of 10, 9, and 10. EKG was NSR and nonischemic. Echocardiogram is pending. CT of the cervical spine and bilateral upper extremity are pending. Will obtain EKG for review. Past Medical History: As per HPI and summarized below Past Surgical History: Oophorectomy Family History: The patient's mother and father had diabetes mellitus type 2. Social History: The patient lives with her . Habits: The patient denies alcohol or illicit drug use, but she does admit to smoking 1 cigarette per day. Home Meds: Caltrate 600+ D3,1 tab daily Multivitamin daily Lovaza 2 caps bid [place] fatty acid/fish oil 300 mg-1000 mg,1 capsule t.i.d. Farxiga 10 mg daily Januvia 100 mg daily Glipizide/metformin5-500 mg, 2 tablets b.i.d. Losartan 50 mg daily Rosuvastatin 10 mg q.h.s. Current Meds: Medications Dose Ordered Sig/Benitez Start Time Stop Time Status Last Admin Aspirin 81 mg DAILY 08/05/24 09:00 09/04/24 08:59 08/05/24 08:51 Atorvastatin Calcium 40 mg HS 08/05/24 21:00 09/04/24 20:59 Lidocaine 1 each Q24H 08/05/24 01:20 09/04/24 01:19 08/05/24 01:50 Insulin Human Regular INSULIN SLIDING SCAL... ACHS 08/05/24 07:30 09/04/24 07:29 08/05/24 06:13 Dextrose 50 ml AD PRN 08/05/24 08:00 09/04/24 07:59 Glucagon 1 mg AD PRN 08/05/24 08:00 09/04/24 07:59 Magnesium Sulfate 50 ml @ 0 mls/hr PROTOCOL PRN 08/05/24 08:00 09/04/24 07:59 Potassium Chloride 100 ml @ 100 mls/hr AD PRN 08/05/24 08:00 09/04/24 07:59 Potassium Chloride 20 meq AD PRN 08/05/24 08:00 09/04/24 07:59 Potassium Chloride 20 meq AD PRN 08/05/24 08:00 09/04/24 07:59 Acetaminophen 650 mg Q6H PRN 08/05/24 08:00 09/04/24 07:59 Acetaminophen 650 mg Q6H PRN 08/05/24 08:00 09/04/24 07:59 Tramadol HCl 50 mg Q6H PRN 08/05/24 08:00 08/10/24 07:59 Lactulose 20 gm Q6H PRN 08/05/24 08:00 09/04/24 07:59 Docusate Sodium 100 mg BID PRN 08/05/24 08:00 09/04/24 07:59 Temazepam 15 mg HS PRN 08/05/24 08:00 09/04/24 07:59 Ondansetron HCl 4 mg Q6H PRN 08/05/24 08:00 09/04/24 07:59 Labetalol HCl 10 mg Q2H PRN 08/05/24 08:00 09/04/24 07:59 Famotidine 20 mg BID 08/05/24 09:00 09/04/24 08:59 08/05/24 08:51 Heparin Sodium (Porcine) 5,000 unit Q12H 08/05/24 08:00 09/04/24 07:59 08/05/24 08:52 Nitroglycerin 0.4 mg AD PRN 08/05/24 08:00 09/04/24 07:59 Ketorolac Tromethamine 15 mg Q6H PRN 08/05/24 08:00 08/10/24 07:59 Losartan Potassium 50 mg AM 08/06/24 09:00 09/05/24 08:59 Home Med ([place]-3 Acid Ethyl Est... BID 08/05/24 21:00 09/04/24 20:59 Review of Systems: CONST: No fever, fatigue, or weight changes. EYES: No recent vision problems. ENT: No congestion, ear pain, or sore throat. C/V: No chest pain, palpitations, or edema. RESP: No cough, congestion, wheezing or shortness of breath. GI: No abdominal pain, nausea, vomiting, constipation, or diarrhea. : No incontinence or dysuria. SKIN: No rash. NEURO: No headache, focal numbness or weakness, dizziness, or seizures. PSYCH: No depression or anxiety. HEME: No abnormal bruising or bleeding. LYMPH: No swollen glands. MS: Admits to left hand numbness, left chest, shoulder, posterior neck, and shoulder blade discomfort. Physical Examination: GENERAL: No acute distress. HEAD: Normal with no signs of head trauma. EYES: PERRLA, EOMI, conjunctiva and sclera normal. ENT: Hearing grossly intact, normal oropharynx. NECK: Supple without JVD. There is no tenderness, lymphadenopathy, or masses. No thyromegaly. Normal carotid upstrokes without bruits. LUNGS: Clear breath sounds bilaterally. No wheezes, or rhonchi. HEART: Normal rate and rhythm. Normal S1 and S2 without murmurs, gallop or rub. VASC: Peripheral pulses +2 bilaterally. ABD: Bowel sounds normal, soft, nontender, no masses, no organomegaly. No audible bruits. : Not examined LYMPH: No lymphadenopathy noted. EXT: No clubbing, cyanosis or edema. SKIN: No rashes or lesions noted. NEURO: Awake, alert, and oriented x3. No focal sensory or strength deficits not ed. Vital Signs (last 8hr) Date Time Temp Pulse Resp B/P (MAP) Pulse Ox O2 Delivery O2 Flow Rate FiO2 08/05/24 11:59 97.9 62 18 124/70 99 Laboratory: Hematology Labs: Test 08/05/24 06:13 08/04/24 22:10 Range/Units White Blood Count 6.6 4.8-10.8 K/uL Red Blood Count 3.54 L 4.00-5.50 MIL/uL Hemoglobin 10.2 L 12.0-16.0 g/dL Hematocrit 31.2 L 36-48 % Mean Corpuscular Volume 88.1 79-99 fL Mean Corpuscular Hemoglobin 28.8 27.0-33.0 pg Mean Corpuscular Hemoglobin Concent 32.7 32.0-36.0 g/dL Red Cell Distribution Width 14.0 11.0-15.5 % Platelet Count 197 130-400 K/uL Mean Platelet Volume 10.8 H 7.5-10.5 fL Nucleated Red Blood Cells 0.0 0.0-0.19 % Erythrocyte Sedimentation Rate 18 0-30 MM/HR Reticulocyte Count (auto) 1.87801 0.42-2.23 % Immature Reticulocyte Fraction 17.00 H 0.18-0.48 % Immature Granulocyte % (Auto) 0.5 0-1 % Neutrophils (%) (Auto) 61.9 40.0-77.0 % Lymphocytes (%) (Auto) 30.0 21.0-51.0 % Monocytes (%) (Auto) 6.2 3.0-13.0 % Eosinophils (%) (Auto) 0.8 0.0-8.0 % Basophils (%) (Auto) 0.6 0.0-5.0 % Neutrophils # (Auto) 4.0 1.8-7.7 K/uL Lymphocytes # (Auto) 1.9 1.0-4.8 K/uL Monocytes # (Auto) 0.4 0.1-1.0 K/uL Eosinophils # (Auto) 0.05 0.00-0.70 K/uL Basophils # (Auto) 0.04 0.00-0.20 K/uL Absolute Immature Granulocyte (auto 0.03 0-1 K/uL Chemistry Labs: Test 08/05/24 06:13 08/05/24 05:41 Range/Units Sodium Level 138 136-145 mmol/L Potassium Level 4.5 3.5-5.1 mmol/L Chloride Level 105 101-111 mmol/L Carbon Dioxide Level 25 21-32 mmol/L Blood Urea Nitrogen 29 H 7-18 mg/dL Creatinine 0.7 0.5-1.0 mg/dL Glomerular Filtration Rate Calc 92 >90 mL/min Random Glucose 194 H 70-105 mg/dL Hemoglobin A1c 8.4 H 4.0-6.0 % Estimated Average Glucose (eAG) 194 H 70-126 mg/dL Total Calcium 8.4 L 8.5-10.1 mg/dL Phosphorus Level 3.8 2.5-4.9 mg/dL Magnesium Level 1.80 1.80-2.40 mg/dL Iron Level 55 50-170 mcg/dL Total Iron Binding Capacity 316 250-450 mcg/dL Percent Iron Saturation 17.4 L 22-44 % Ferritin 11 L 15-150 ng/mL Total Bilirubin 0.2 0.2-1.0 mg/dL Aspartate Amino Transf (AST/SGOT) 11 10-37 U/L Alanine Aminotransferase (ALT/SGPT) 20 12-78 U/L Alkaline Phosphatase 41 L 50-136 U/L Troponin I High Sensitivity 10 4-50 ng/L C-Reactive Protein, Quantitative 0.50 0.5-3.0 mg/L TB-Skr-P-Type Natriuretic Peptide 166 H 0-125 pg/mL Total Protein 6.0 6.0-8.3 g/dL Albumin 3.0 L 3.5-5.0 g/dL Vitamin B12 Level 272 193-986 pg/mL Thyroid Stimulating Hormone (TSH) 2.40 0.36-3.74 uIU/mL Whole Blood Glucose 197 H 70-110 MG/DL Diagnostics / Radiology: Impression and Plan: Musculoskeletal chest pain Hypertension Dyslipidemia Diabetes mellitus type 2 Musculoskeletal chest pain Troponin of 10, 9, and 10, EKG was NSR and nonischemic If Echocardiogram is normal, no further work-up by cardio CT of the cervical spine and bilateral upper extremity are pending ATTESTATION BY PHYSICIAN I have seen and examined the patient, reviewed the above documentation, participated in medical decision making, made necessary modifications, and agree with the treatment plan as documented by my mid-level provider above. This pain is highly atypical, and although she does get numbness in her left arm, virtually all of the pain is exacerbated by various motions of shoulder and arm. She most likely has radicular pain to explain the arm discomfort, and I am quite certain that her pain is musculoskeletal in nature. I would not pursue additional cardiac testing at this time. MD OC Streeter VALERIE L [facility] Aug 05, 2024 16:06 DARELL BAREGR MD Aug 05, 2024 19:00 Electronically Signed by: HEATHER RENAE [facility]08/05/24 1729 Electronically Co-Signed by: DARELL BARGER MD08/05/24 1901 Procedure(s): PROCEDURE: EKG - 12 LEAD EKG TRACING- TECHNICAL [facility] Test Date: 2024-08-04 Test Time: 22:20:20 Pat Name: ARLENE QUIÑONES Department: [facility] Room: 324 Gender: F Information Security Associate: [id number] [phone] [id number] Requested By: NEAL GHOSH Order Number: [id number] Reading MD: Darell Barger Measurements Intervals [place] Rate: 67 P: 56 GA: 164 QRS: -17 QRSD: 85 T: 44 QT: 426 QTc: 450 Interpretive Statements Sinus rhythm Low voltage, precordial leads Compared to ECG 02/07/2022 11:47:12 Low QRS voltage now present Myocardial infarct finding now present Electronically Signed On 08-05-2024 17:08:13 CDT by Darell Barger PROCEDURE: ECHO CMP - ECHO 2-D COMPLETE APPROVED REPORT EXAM: Two-dimensional and M-mode echocardiogram with Doppler and color Doppler. INDICATION ICD: Left shoulder pain Chest Pain 2D Dimensions RVDd 3.1 cm LVEF(%) 71.5 (>50%) LVED Vol(simp.) 88.0 mL IVSd 0.7 (0.7-1.1cm) FS(%) 41 % LVES Vol(simp.) 38.0 mL LVDd 4.4 (3.8-5.6cm) LA (2D) 4.2 (1.6-4.0cm) LVEF(%, simp.) 57 % PWd 1.1 (0.7-1.1cm) Ao Root(2D) 2.7 (2.0-3.7cm) LA ESV INDEX (BP) 29.33 mL/m2 LVDs 2.6 (2.5-4.0cm) LVOT diam 1.8 (1.8-2.4cm) IVC diam 1.3 cm Deformation Strain Apical 4 -16.6 % Apical 2 -17.7 % Apical 3 -18.5 % Global Strain -17.6 % M-Mode Dimensions EPSS 0.3 cm LA (MM) 4.4 (1.6-4.0cm) Ao Root(MM) 3.1 (2.0-3.7cm) Aortic Valve AoV Vmax 1.2 m/s Ao Peak GR 5.3 mmHg LVOT Vmax 1.0 m/s AoV VTI 0.3 m Ao Mean GR 2.9 mmHg LVOT VTI 0.27 m TRISTAN (VMAX) 2.23 cm2 TRISTAN (VTI) 2.2 cm2 Mitral Valve MV E Vmax 76.3 cm/s DECEL Time 235 ms MV A Vmax 77.7 cm/s P 1/2 T 66 ms E/A ratio 1.0 MVA (PHT) 3.3 cm2 TDI E/E' Medial 10.8 E/E' Lateral 8.2 Medial E' Peak V 7.08 cm/s Lateral E' Peak V 9.27 cm/s Pulmonary Valve PV Vmax 0.8 m/s PV Peak GR 2.8 mmHg Tricuspid Valve TR Vmax 2.4 m/s RAP (EST) 3 mmHg RVSP 25.9 mmHg TR Peak GR 22.9 mmHg Left Ventricle The left ventricle is normal size. GLS -18.0%. There is normal LV segmental wall motion. There is normal left ventricular wall thickness. The LVEF is 65%. The left ventricular diastolic function is normal. Right Ventricle The right ventricle is normal size. The right ventricular systolic function is normal. Atria The left atrium size is normal. The right atrium size is normal. Aortic Valve The aortic valve is normal in structure. No aortic regurgitation is present. There is no aortic valvular stenosis. Mitral Valve The mitral valve is normal in structure. There is trace of mitral valve regu rgitation noted. There is no mitral valve stenosis. Tricuspid Valve The tricuspid valve is normal in structure. There is trace of tricuspid valve regurgitation noted. Pulmonic Valve The pulmonary valve is normal in structure. There is no pulmonic valvular regurgitation. Great Vessels The aortic root is normal in size. The IVC is normal in size and collapses >50% with inspiration. Pericardium There is no pericardial effusion. Other Information Quality : Adequate DICTATED BY: DARELL BARGER MD DATE: 08/05/24 1051 ELECTRONICALLY SIGNED BY: DARELL BARGER MD DATE: 08/05/24 1729 PROCEDURE: SHOL 2V LT - SHOULDER COMP 2+VWS LT SHOULDER COMP 2+VWS LT HISTORY: Pain COMPARISON: None TECHNIQUE: 2 images of the left shoulder were obtained. FINDINGS: There is no acute displaced fracture or dislocation. Degenerative changes are seen. IMPRESSION: 1. Findings as described above. PROCEDURE: CXR1VW - CHEST 1VW CHEST 1VW HISTORY: Chest pain COMPARISON: None FINDINGS: A frontal projection of the chest was obtained. No acute pulmonary infiltrates is seen. The heart is borderline enlarged. Degenerative changes are seen. No evidence of aortic calcification is seen. IMPRESSION: 1. No acute pulmonary infiltrate is seen. DICTATED BY: MARGARITA CALVIN MD DATE: 08/05/24 1615 ELECTRONICALLY SIGNED BY: MARGARITA CALVIN MD DATE: 08/05/24 1618 PROCEDURE: C SPIN WO - CT CERVICAL SPINE W/O CONTRAST CT CERVICAL SPINE W/O CONTRAST HISTORY: Neck pain COMPARISON: None TECHNIQUE: Multiple sequential axial images of the cervical spine were obtained including post processing sagittal and coronal reconstruction images. Patient was not given contrast through intravenous route. FINDINGS: There are degenerative changes of the cervical spine spondylosis. Disc space narrowing is seen at C5-6 and C6-7 levels. There is straightening of normal lordotic cervical curvature which may be related to muscle spasm or positioning. There is no loss of vertebral height. Evaluation for disc and cord pathology is limited with CT study. No evidence of fracture or dislocation is seen. IMPRESSION: 1. No fracture is seen. CT was performed with one or more following dose reduction techniques: automated exposure control, adjustment of the mA and kv according to patient's size, or use of a iterative reconstruction technique. DICTATED BY: MARGARITA CALVIN MD DATE: 08/06/243 ELECTRONICALLY SIGNED BY: MARGARITA CALVIN MD DATE: 08/06/24 1336 PROCEDURE: UPP EXT WO - CT UPPER EXT W/O CONTRAST CT UPPER EXT W/O CONTRAST HISTORY: Shoulder pain COMPARISON: None TECHNIQUE: Multiple sequential axial images of the right shoulder were obtained including post processing sagittal and coronal reconstruction images. Patient was not given contrast through intravenous route. FINDINGS: There is no acute displaced fracture or dislocation. There are degenerative changes. Hypertrophic changes are noted of the acromioclavicular joint. If there is clinical suspicion for rotator cuff tendon tear, MRI may be helpful. IMPRESSION: 1. No acute displaced fracture or dislocation is seen. There are findings suspicious for rotator cuff tendon tear. MRI may be helpful. CT was performed with one or more following dose reduction techniques: automated exposure control, adjustment of the mA and kv according to patient's size, or use of a iterative reconstruction technique. DICTATED BY: MARGARITA CALVIN MD DATE: 08/06/24 1547 ELECTRONICALLY SIGNED BY: MARGARITA CALVIN MD DATE: 08/06/24 1553 PROCEDURE: UPP EXT WO - CT UPPER EXT W/O CONTRAST CT UPPER EXT W/O CONTRAST HISTORY: Shoulder pain COMPARISON: None TECHNIQUE: Multiple sequential axial images of the left shoulder were obtained including post processing sagittal and coronal reconstruction images. Patient was not given contrast through intravenous route. FINDINGS: There is no acute displaced fracture or dislocation. There are degenerative changes. Hypertrophic changes are noted of the acromioclavicular joint. There is calcification in the rotator cuff tendon may be related to calcific tendinosis. Evaluation for tendons or ligaments is limited with CT. IMPRESSION: 1. No acute displaced fracture or dislocation is seen. There is calcification in the rotator cuff tendon may be related to calcific tendinosis. Evaluation for tendons or ligaments is limited with CT. CT was performed with one or more following dose reduction techniques: automated exposure control, adjustment of the mA and kv according to patient's size, or use of a iterative reconstruction technique. Assessment/Plan: DISCHARGE DIAGNOSIS : Acute chest pain, Musculoskeletal chest pain ,secondary to rotator cuff injury poa ACS ruled out , Acute bilateral shoulder pain secondary to calcific tendinosis and rotator cuff injury , POA Dehydration/elevated BUN, POA resolved Anemia of chronic disease , POA Acute on chronic kidney disease (GFR 76 in 02/07/2022 and GFR 92 on 04/15/2024) Diabetes mellitus with hyperglycemia Arthritis Hypertension Hypercholesteremia ASSESSMENT: Acute chest pain -musculoskeletal origin secondary to rotator cuff injury , POA ACS ruled out negative cardiac enzymes and EKG no further episodes of chest pain Echo unremarkable Cardiology recommended no further cardiac work up this time Acute bilateral shoulder pain with movement,secondary to rotator cuff injury POA Improved Negative Rheumatoid Factor CT shoulder suggestive of rotator cuff injury Recommend outpatient MRI to rule out rotator cuff tear . continue pain medications as directed Diabetes mellitus with hyperglycemia A1C 8.4 please continue to be compliant with your medications Follow up with your primary care doctor regularly to monitor blood sugar levels . Discharge Instructions: DATE OF ADMISSION: 08.04.24 DATE OF DISCHARGE: 08.06.24 DISPOSITION: HOME CONDITION: Medically stable CONSULTANTS: Cardiology FOLLOW UP APPOINTMENTS: Follow up with your primary care doctor in 2 to 3 days . PROCEDURES: Nil IMAGING: report attached to summary MICROBIOLOGY: report attached to summary HOME MEDICATIONS: see med rec NEW MEDICATIONS: See medication reconciliation EMERGENCY INSTRUCTIONS: The patient was instructed to present to the nearest Emergency department or call 911 once their symptoms will return or worsen. Home Medications: Active Scripts Lidocaine (Lidocaine) 4 % Adh..patch, 1 PATCH TP DAILY PRN for PAIN for 10 Days, #10 PATCH 0 Refills Prov:ALDO GARCIA MD 08/06/24 Reported Medications Multivit-Min/Iron/FA/Vit K/Lut (Centrum Silver Women Tablet) 8 Mg Iron-400 Mcg- 50 Mcg-300 Mcg Tablet, 1 TAB PO DAILY for 30 Days, #30 TAB 0 Refills 08/05/24 Ca/D3/Mag/Zinc/Geovanna/Varun/Mgbor (Caltrate 600+D3+Min Chew Tab) 600 Mg-800 Tab.chew, 1 TAB PO DAILY for 30 Days, #30 TAB 0 Refills 08/05/24 Glipizide/Metformin HCl (Glipizide-Metformin 5-500 mg) 5 Mg-500 Mg Tablet, 2 TAB PO BID for 30 Days, #120 TAB 0 Refills 08/05/24 [place]-3 Acid Ethyl Esters (Lovaza) 1 Gram Capsule, 2 CAP PO BID for 30 Days, #120 CAP 0 Refills 08/05/24 Losartan Potassium (Losartan Potassium) 50 Mg Tablet, 50 MG PO AM, TAB 08/05/24 Rosuvastatin Calcium (Rosuvastatin Calcium) 10 Mg Tablet, 1 TAB PO HS for 30 Days, #30 TAB 0 Refills 08/05/24 Sitagliptin Phosphate (Januvia) 100 Mg Tablet, 100 MG PO AM, TAB 08/05/24 Dapagliflozin Propanediol (Farxiga) 10 Mg Tablet, 10 MG PO AM, TAB 08/05/24 Discontinued Reported Medications [place]-3 Fatty Acids/Fish Oil ([place] 3 1,000 mg Softgel) 300 Mg-1,000 Mg Capsule, 1 CAP PO TID for 30 Days, #90 CAP 0 Refills WITH MEALS 08/05/24 Discontinued Scripts Docusate Sodium (Colace) 100 Mg Capsule, 100 MG PO TID for constipation, #30 CAP 0 Refills Prov:JOSEPH GILBERT TOOL LAPPER HAND 04/15/24 Cephalexin Monohydrate (Keflex) 500 Mg Cap, 500 MG PO QID for 7 Days, #28 CAP Prov:JOSEPH GILBERT TOOL LAPPER HAND 04/15/24 Acetaminophen (Tylenol) 500 Mg Tab, 500 MG PO Q6HPRN PRN for PAIN LEVEL 1 TO 5 for 5 Days, #30 TAB Prov:BHAKTI CISSE MD 02/07/22 Sitagliptin Phosphate (Januvia) 25 Mg Tablet, 25 MG PO DAILY for 30 Days, #30 TAB Prov:GRAHAM CHAIDEZ Jr., MD 07/11/19 Metformin HCl (Metformin HCl) 500 Mg Tablet, 500 MG PO TIDAC for 30 Days, #90 T AB Prov:GRAHAM CHAIDEZ Jr., MD 07/11/19 Atorvastatin Calcium (Atorvastatin Calcium) 20 Mg Tablet, 20 MG PO HS for 30 Days, #30 TAB Prov:GRAHAM CHAIDEZ Jr., MD 07/11/19 Time spent arranging discharge: 1-30 minutes ATTESTATION BY PHYSICIAN I have seen and examined the patient. I reviewed the documentation, medical decision making, and treatment plan as noted by the resident provider above. I agree with the findings and plan of care. ALDO TAYLOR MD, MD Aug 06, 2024 10:37
[2024-08-06 12:00] VITALS: BP 118/68; PULSE 67; RESP 18; TEMP 98
--- NOTE | 2024-08-06 13:36 | HMCIMG ---
CT CERVICAL SPINE W/O CONTRAST HISTORY: Neck pain COMPARISON: None TECHNIQUE: Multiple sequential axial images of the cervical spine were obtained including post processing sagittal and coronal reconstruction images. Patient was not given contrast through intravenous route. FINDINGS: There are degenerative changes of the cervical spine spondylosis. Disc space narrowing is seen at C5-6 and C6-7 levels. There is straightening of normal lordotic cervical curvature which may be related to muscle spasm or positioning. There is no loss of vertebral height. Evaluation for disc and cord pathology is limited with CT study. No evidence of fracture or dislocation is seen. IMPRESSION: 1. No fracture is seen. CT was performed with one or more following dose reduction techniques: automated exposure control, adjustment of the mA and kv according to patient's size, or use of a iterative reconstruction technique.
[2024-08-06 15:00] VITALS: BP_SYST 103; BP_SYST 130; BP_DIAS 64; BP_DIAS 75; PULSE 50; PULSE 67; RESP 18; TEMP 97.7
--- NOTE | 2024-08-06 15:53 | HMCIMG ---
CT UPPER EXT W/O CONTRAST HISTORY: Shoulder pain COMPARISON: None TECHNIQUE: Multiple sequential axial images of the right shoulder were obtained including post processing sagittal and coronal reconstruction images. Patient was not given contrast through intravenous route. FINDINGS: There is no acute displaced fracture or dislocation. There are degenerative changes. Hypertrophic changes are noted of the acromioclavicular joint. If there is clinical suspicion for rotator cuff tendon tear, MRI may be helpful. IMPRESSION: 1. No acute displaced fracture or dislocation is seen. There are findings suspicious for rotator cuff tendon tear. MRI may be helpful. CT was performed with one or more following dose reduction techniques: automated exposure control, adjustment of the mA and kv according to patient's size, or use of a iterative reconstruction technique.
--- NOTE | 2024-08-06 15:54 | HMCIMG ---
CT UPPER EXT W/O CONTRAST HISTORY: Shoulder pain COMPARISON: None TECHNIQUE: Multiple sequential axial images of the left shoulder were obtained including post processing sagittal and coronal reconstruction images. Patient was not given contrast through intravenous route. FINDINGS: There is no acute displaced fracture or dislocation. There are degenerative changes. Hypertrophic changes are noted of the acromioclavicular joint. There is calcification in the rotator cuff tendon may be related to calcific tendinosis. Evaluation for tendons or ligaments is limited with CT. IMPRESSION: 1. No acute displaced fracture or dislocation is seen. There is calcification in the rotator cuff tendon may be related to calcific tendinosis. Evaluation for tendons or ligaments is limited with CT. CT was performed with one or more following dose reduction techniques: automated exposure control, adjustment of the mA and kv according to patient's size, or use of a iterative reconstruction technique.
[2024-08-06] MEDS ORDERED: LIDO1ADH82 TP (16:21)
--- NOTE | 2024-08-06 17:49 | NUR ---
DISCHARGE PERIPHERAL IV REMOVED DISCHARGE EDUCATION AND INSTRUCTIONS PROVIDED TO PATIENT PATIENT AWARE TO FOLLOW UP WITH PCP IN 2-3 DAYS AND TO OBTAIN REFERRAL FOR MRI OF LEFT SHOULDER PATIENT AWARE TO CONTINUE HOME MEDICATIONS DIRECTED AND TO BEHAVIORAL MEDICAL DIRECTOR NEW PRESCRIPTION AT PREFERRED PHARMACY ALL QUESTIONS ANSWERED
== END 2024-08-06 17:56 | disposition home or self-care (01) | DRG 351 ==
LOC: EDH 22:01 → EDHIP 22:02 → 3DH 08-05 01:08
PROVIDERS: ADMIT Internal Medicine; ATTEND Internal Medicine
DX: S46.092A Other injury of muscle(s) and tendon(s) of the rotator cuff of left shoulder, initial encounter (principal); D63.8 Anemia in other chronic diseases classified elsewhere; S46.091A Other injury of muscle(s) and tendon(s) of the rotator cuff of right shoulder, initial encounter; I20.0 Unstable angina; E11.65 Type 2 diabetes mellitus with hyperglycemia; E86.0 Dehydration; E78.00 Pure hypercholesterolemia, unspecified; W18.39XA Other fall on same level, initial encounter; I10 Essential (primary) hypertension; Z90.710 Acquired absence of both cervix and uterus; Y93.89 Activity, other specified; Y92.89 Other specified places as the place of occurrence of the external cause; Y99.8 Other external cause status; F17.210 Nicotine dependence, cigarettes, uncomplicated; Z79.82 Long term (current) use of aspirin; Z79.84 Long term (current) use of oral hypoglycemic drugs; Z79.899 Other long term (current) drug therapy; Z83.3 Family history of diabetes mellitus
CPT/HCPCS: 36415; 71045; 72125; 73030; 73200; 80048; 80053; 82306; 82607; 82728; 82948; 83036; 83735; 83880; 84100; 84443; 84484; 85025; 85027; 85651; 86140; 86431; 93005; 93306; 93356; 99285; G0378; J1644; J1815; J1885; J3475; J3490